=== PATIENT | female | born 1970 ===

== ENCOUNTER 2016-12-05 19:33 | Observation (INO) | payer MEDICAID, OTHER ==
[2016-12-05 20:39] LABS: PH,URINE 6.5 (4.7-8.0); URINE BILIRUBIN NEGATIVE (NEGATIVE); URINE BLOOD TRACE-LYSED (NEGATIVE); URINE GLUCOSE (UA) NEGATIVE (NEGATIVE); URINE KETONE NEGATIVE (NEGATIVE); URINE LEUKOCYTE ESTERASE NEGATIVE Leu/uL (NEGATIVE); URINE PROTEIN NEGATIVE mg/dL (<30 mg/dL); URINE UROBILINOGEN 0.2 E.U./dL (<1 E.U./dL)
[2016-12-05 20:42] LABS: URINE APPEARANCE CLEAR (CLEAR); URINE COLOR LIGHT YELLOW (YELLOW)
[2016-12-05 20:46] LABS: BASO # 0.02 K/mm3 (0.0-2.0); BASO % 0.2 % (0.0-3.0); EOS # 0.1 (0.0-0.7); EOS % 1.2 % (1.5-5.0); GRAN # 7.75 (1.4-6.5); GRAN % 70.5 % (50.0-68.0); HEMATOCRIT 37.1 % (36.0-48.0); LYMPH # 2.4 (1.2-3.4); LYMPH % 21.8 % (22.0-35.0); MEAN CORPUSCULAR HEMOGLOBIN 30.5 pg (25.0-35.0); MEAN CORPUSCULAR HGB CONC 34.2 g/dl (31.0-37.0); MEAN PLATELET VOLUME 9.4 fl (7.0-11.0); MONO # 0.7 (0.1-0.6); MONO % 6.3 % (1.0-6.0); RED CELL DISTRIBUTION WIDTH 13.1 % (11.5-14.5)
[2016-12-05 20:59] LABS: ALB/GLOB RATIO 1.3 (1.1-1.8); ALKALINE PHOSPHATASE 67 U/L (38-133); ALT/SGPT 24 U/L (7-56); AST/SGOT 20 U/L (15-39); BILIRUBIN,TOTAL 0.6 mg/dL (0.2-1.3); BLOOD UREA NITROGEN 9 mg/dL (7-21); CALCIUM 9.1 mg/dL (8.4-10.5); CARBON DIOXIDE 26 mmol/L (21-33); CHLORIDE 103 mmol/L (95-110); GFR AFRICAN-AMERICAN > 60; GLUCOSE,RANDOM 85 mg/dL (70-110); SODIUM 140 mmol/L (132-148); TOTAL PROTEIN 7.5 g/dL (5.8-8.3)
[2016-12-05 21:03] LABS: INR 0.99 (0.93-1.08); PARTIAL THROMBOPLASTIN TIME 27.8 Seconds (23.7-30.8)
[2016-12-05 21:08] LABS: D DIMER 1.03 mg/L FEU (0-0.50)
[2016-12-05 21:12] LABS: URINE BACTERIA MOD (NEG); URINE WBC 0 - 2 /hpf (0-6)
[2016-12-05 21:14] LABS: TROPONIN I < 0.01 ng/mL
--- NOTE | 2016-12-05 21:17 | ED PDOC ---
Arrival/HPI - General Chief Complaint: Shortness Of Breath Time Seen by Provider: 12/05/16 19:38 Historian: Patient - History of Present Illness Narrative History of Present Illness (Text): 12/05/16 20:15 Shari Jacobs is a 45 year old female whose past medical history includes CHF, hypertension, and mitral valve replacement, presents to the Emergency department complaining of mid-sternal chest pain for the past three days. Patient reports the pain radiates towards her neck and becomes worse with inspiration, which she associates with shortness of breath and nausea. Patient also has a mild headache. Patient denies fever, chills cough, vomiting, diarrhea , diaphoresis, jaw pain, back pain, lower extremity pain/swelling, or other complaints. Time/Duration: < week (3 days) Symptom Onset: Sudden Symptom Course: Unchanged Modifying Factors (Text): pain is worse with inspiration. shortness of breath with inspiration. Associated Symptoms (Text): 12/05/16 20:15 neck pain, shortness of breath with inspiration, nausea, and mild headache. Past Medical History - Provider Review Nursing Documentation Reviewed: Yes - Infectious Disease Hx of Infectious Diseases: None - Tetanus Immunization Tetanus Immunization: Unknown - Cardiac Hx Cardiac Disorders: Yes Hx Congestive Heart Failure: Yes Hx Hypertension: Yes Hx Mitral Valve Prolapse: Yes (had surgery) - Pulmonary Hx Respiratory Disorders: No - Neurological Hx Neurological Disorder: No - HEENT Hx HEENT Disorder: No - Renal Hx Renal Disorder: No - Endocrine/Metabolic Hx Endocrine Disorders: No - Hematological/Oncological Hx Blood Disorders: No Hx Blood Transfusion Reaction: No Hx Bruising: No - Integumentary Hx Dermatological Disorder: No - Musculoskeletal/Rheumatological Hx Musculoskeletal Disorders: No Hx Falls: No - Gastrointestinal Hx Gastrointestinal Disorders: No - Genitourinary/Gynecological Hx Genitourinary Disorders: No - Psychiatric Hx Psychophysiologic Disorder: No Hx Substance Use: No - Surgical History Hx Open Heart Surgery: Yes (heart valve replacement) Hx Valve Replacement: Yes (2009) - Anesthesia Hx Anesthesia: Yes Hx Anesthesia Reactions: No Hx Malignant Hyperthermia: No - Suicidal Assessment Feels Threatened In Home Enviroment: No Family/Social History - Physician Review Nursing Documentation Reviewed: Yes Family/Social History: Unknown Family HX Smoking Status: Never Smoked Hx Alcohol Use: No Hx Substance Use: No Hx Substance Use Treatment: No Allergies/Home Meds Allergies/Adverse Reactions: Allergies No Known Allergies Allergy (Verified 12/05/16 19:37) Home Medications: Home Meds Medication Instructions Recorded Confirmed Atenolol [Tenormin] 50 mg PO BID 12/05/16 12/05/16 Furosemide [Lasix] 40 mg PO DAILY 12/05/16 12/05/16 Review of Systems - Review of Systems Constitutional: absent: Fevers Respiratory: SOB (with inspiration). absent: Cough Cardiovascular: Chest Pain (mid-sternal) Gastrointestinal: Nausea. absent: Abdominal Pain, Diarrhea, Vomiting Genitourinary Female: absent: Dysuria Musculoskeletal: Neck Pain (chest pain radiates to neck) Neurological: Headache. absent: Dizziness, Focal Weakness Physical Exam Vital Signs Reviewed: Yes Vital Signs Temp Pulse Resp BP Pulse Ox 12/05/16 22:30 883 H 16 158/96 H 100 12/05/16 19:47 98.2 F 85 20 157/95 H 100 Temperature: Afebrile Blood Pressure: Hypertensive Pulse: Regular Respiratory Rate: Normal Appearance: Positive for: Well-Appearing, Non-Toxic, Comfortable Pain Distress: None Mental Status: Positive for: Alert and Oriented X 3 - Systems Exam Head: Present: Atraumatic, Normocephalic Pupils: Present: PERRL Conjunctiva: Present: Normal Mouth: Present: Moist Mucous Membranes Pharnyx: Present: Normal. No: ERYTHEMA Neck: Present: Normal Range of Motion Respiratory/Chest: Present: Clear to Auscultation, Good Air Exchange, Other ( sternotomy scar). No: Respiratory Distress, Accessory Muscle Use Cardiovascular: Present: Regular Rate and Rhythm, Normal S1, S2. No: Murmurs Abdomen: Present: Normal Bowel Sounds. No: Tenderness, Distention, Peritoneal Signs Back: Present: Normal Inspection Upper Extremity: Present: Normal Inspection. No: Cyanosis, Edema Lower Extremity: Present: Normal Inspection. No: Edema Neurological: Present: GCS=15, CN II-XII Intact, Speech Normal Skin: Present: Warm, Dry, Normal Color. No: Rashes Psychiatric: Present: Alert, Oriented x 3, Normal Insight, Normal Concentration Medical Decision Making ED Course and Treatment: 12/05/16 20:15 Impression: 45 year old female with midsternal chest pain and shortness of breath. Differential: ACS vs PE vs pneumonia vs anxiety vs GERD Plan: -- EKG -- Chest X-ray -- CT Chest -- Labs -- Urinalysis -- Pepcid and Zofran -- Reassess and disposition Progress Notes: EKG: Ordered, reviewed, and independently interpreted the EKG. Rate : 89 BPM Rhythm : NSR Interpretation : first degree AV block. ND is 261. Other intervals are normal. Normal axis. No ST/T changes. No changes compared to previous EKG. Comparison : 12/03/2016 12/05/16 20:15 Patient states she is going for repeat of valve replacement in two days at [facility]. 12/05/16 23:53 CT Angiography Chest With Intravenous Contrast FINDINGS: Pulmonary arteries: No pulmonary embolism. Aorta: No thoracic aortic aneurysm. Lungs: No mass. No consolidation. Patchy groundglass opacification is identified with a mosaic perfusion pattern within the bilateral lung bases. Pleural spaces: A right-sided pleural effusion is identified. The right lateral chest wall within the right upper lobe arch there is a loculated effusions, the largest at the base of the right upper lobe measuring 16 x 24 mm. No pneumothorax. Heart: The heart is enlarged, without significant pericardial effusion. Prosthetic mitral and tricuspid valves are noted. No evidence of right heart dysfunction. Bones: No acute fracture. Sternal wires are present. Lymph nodes: No pathologically enlarged lymph nodes. IMPRESSION: No pulmonary embolism. Right-sided pleural effusion with small loculated effusions along the right lateral chest wall, possibly the source of patient's pain, for which clinical correlation is needed. 12/06/16 00:14 Patient with noted history. Labs with elevated d-dimer and unchanged EKG. CTA showing no PE but pleural effusion. Patient is now c/o R lateral rib pain, which may be related. Toradol ordered. Case discussed with Dr. Sanchez for placement on the hospitalist service on observation on tele. - Lab Interpretations Lab Results: 12/05/16 20:34 12/05/16 20:34 Lab Results 12/05/16 20:34: Sodium 140, Potassium 4.0, Chloride 103, Carbon Dioxide 26, Anion Gap 15, BUN 9, Creatinine 0.5, Est GFR ( Amer) > 60, Est GFR (Non- Af Amer) > 60, Random Glucose 85, Calcium 9.1, Total Bilirubin 0.6, AST 20, ALT 24, Alkaline Phosphatase 67, Lactate Dehydrogenase 464, Total Creatine Kinase 38 , Troponin I < 0.01, NT-Pro-B Natriuret Pep 473 H, Total Protein 7.5, Albumin 4.2, Globulin 3.3, Albumin/Globulin Ratio 1.3 12/05/16 20:34: PT 10.7, INR 0.99, APTT 27.8, D-Dimer, Quantitative 1.03 H 12/05/16 20:34: WBC 11.0 D, RBC 4.17, Hgb 12.7, Hct 37.1, MCV 89.0, MCH 30.5, MCHC 34.2, RDW 13.1, Plt Count 336, MPV 9.4, Gran % 70.5 H, Lymph % (Auto) 21.8 L, [place] % (Auto) 6.3 H, Eos % (Auto) 1.2 L, Baso % (Auto) 0.2, Gran # 7.75 H, Lymph # 2.4, [place] # 0.7 H, Eos # 0.1, Baso # 0.02 12/05/16 20:20: Urine Color Light yellow, Urine Appearance Clear, Urine pH 6.5, Ur Specific [place] <= 1.005, Urine Protein Negative, Urine Glucose (UA) Negative, Urine Ketones Negative, Urine Blood Trace-lysed H, Urine Nitrate Negative, Urine Bilirubin Negative, Urine Urobilinogen 0.2, Ur Leukocyte Esterase Negative, Urine RBC 1 - 3, Urine WBC 0 - 2, Ur Epithelial Cells 4 - 5, Urine Bacteria Mod I have reviewed the lab results: Yes - RAD Interpretation Radiology Orders: 12/05/16 19:57 CHEST PORTABLE [RAD] Stat 12/05/16 21:09 ANGIO CHEST PE PROTOCOL [CT] Stat - EKG Interpretation Interpreted by ED Physician: Yes Type: 12 lead EKG - Medication Orders Current Medication Orders: Discontinued Medications Famotidine (Pepcid) 20 mg IVP STAT STA Stop: 12/05/16 19:58 Last Admin: 12/05/16 20:39 Dose: 20 mg Iohexol (Omnipaque 350 100 Ml) Confirm Administered Dose 350 mg .ROUTE .STK-MED ONE Stop: 12/05/16 21:21 Ketorolac Tromethamine (Toradol) 30 mg IVP STAT STA Stop: 12/05/16 23:48 Last Admin: 12/05/16 23:51 Dose: 30 mg Ondansetron HCl (Zofran Inj) 4 mg IVP STAT STA Stop: 12/05/16 19:58 Last Admin: 12/05/16 20:39 Dose: 4 mg - Scribe Statement The provider has reviewed the documentation as recorded by the Scribe 12/05/2016 Chana Yokasta Provider Scribe Attestation: All medical record entries made by the Scribe were at my direction and personally dictated by me. I have reviewed the chart and agree that the record accurately reflects my personal performance of the history, physical exam, medical decision making, and the department course for this patient. I have also personally directed, reviewed, and agree with the discharge instructions and disposition. Disposition/Present on Arrival - Present on Arrival Any Indicators Present on Arrival: No History of DVT/PE: No History of Uncontrolled Diabetes: No Urinary Catheter: No History of Decub. Ulcer: No History Surgical Site Infection Following: None - Disposition Have Diagnosis and Disposition been Completed?: Yes Diagnosis: Chest pain, H/O mitral valve replacement, Pleural effusion Disposition: HOSPITALIZED Disposition Time: 23:50 Patient Plan: Observation, Telemetry Condition: FAIR
[2016-12-05] MEDS ORDERED: Iohexol 350 MG/100 ML VIAL ONE (21:20)
--- NOTE | 2016-12-05 23:53 | CT ---
EXAM: CT Angiography Chest With Intravenous Contrast CLINICAL HISTORY: 45 years old, female; Pain; Chest wall pain; Prior surgery; Surgery date: 6+ months; Surgery type: Heart; Additional info: Pleuritic chest pain TECHNIQUE: Axial computed tomographic angiography images of the chest with intravenous contrast using pulmonary embolism protocol. All CT scans at this facility use one or more dose reduction techniques, viz.: automated exposure control; ma/kV adjustment per patient size (including targeted exams where dose is matched to indication; i.e. head); or iterative reconstruction technique. MIP reconstructed images were created and reviewed. Coronal and sagittal reformatted images were created and reviewed. CONTRAST: 100 mL of OMNI administered intravenously. COMPARISON: No relevant prior studies available. FINDINGS: Pulmonary arteries: No pulmonary embolism. Aorta: No thoracic aortic aneurysm. Lungs: No mass. No consolidation. Patchy groundglass opacification is identified with a mosaic perfusion pattern within the bilateral lung bases. Pleural spaces: A right-sided pleural effusion is identified. The right lateral chest wall within the right upper lobe arch there is a loculated effusions, the largest at the base of the right upper lobe measuring 16 x 24 mm. No pneumothorax. Heart: The heart is enlarged, without significant pericardial effusion. Prosthetic mitral and tricuspid valves are noted. No evidence of right heart dysfunction. Bones: No acute fracture. Sternal wires are present. Lymph nodes: No pathologically enlarged lymph nodes. IMPRESSION: No pulmonary embolism. Right-sided pleural effusion with small loculated effusions along the right lateral chest wall, possibly the source of patient's pain, for which clinical correlation is needed.
--- NOTE | 2016-12-06 01:00 | CP.PCM.HP ---
<Keyon Farrell - Last Filed: 12/06/16 02:05> History of Present Illness - History of Present Illness History of Present Illness: 46 year old female with a past medical history significant for hypertension, mitral & tricuspid valve replacement (etiology unknown to me at this time), open heart surgery, who presents with 1 month of cough, increased dyspnea with activity, orthopnea requiring 3 pillows to sleep at night, a productive cough with yellow/thick sputum and 1 week of subjective fever and headache. She states that she is also having pain on the along the right subcostal margin that is constant, and worsened with deep inspriation. She denies retrosternal, pressure-type chest pain at the time of my examination. She does not c/o visual disturbances, unilateral weakness, numbness, or new skin /nail lesions. She denies having any recent sick contact, or significant travel history, or TB exposure. PMH: hypertension, Mitral Valve replacement in 2008 and 2009, with last on record ECHO date as 12/04/2014 PSH: Open heart surgery for mitral valve replacement Medications: reviewed Allergies: Oxycodone Family History: Patient had difficulty recalling, or understanding this requested information at the time of my examination. Possible language barrier. Social History: Language barrier, possibly. Present on Admission - Present on Admission Any Indicators Present on Admission: No Review of Systems - Constitutional Constitutional: absent: Night Sweats, Weight Loss, Weakness - EENT Eyes: absent: Dry Eye, Exophthalmos, Pain Ears: absent: Decreased Hearing, Ear Discharge, Disequilibrium - Cardiovascular Cardiovascular: Dyspnea, Orthopnea. absent: Diaphoresis, Irregular Heart Rhythm , Leg Edema - Respiratory Respiratory: Cough, Change in Mucous Color, Pain with Coughing. absent: Hemoptysis, Dyspnea on Exertion - Gastrointestinal Gastrointestinal: absent: Belching, Bloating, Coffee Ground Emesis, Dysphagia - Genitourinary Genitourinary: absent: Urinary Incontinence, Urinary Hesitance, Urinary Urgency - Musculoskeletal Musculoskeletal: Neck Pain. absent: Abnormal Gait, Limited Range of Motion, Numbness - Integumentary Integumentary: absent: Skin Ulcer, Sores, Swelling, Jaundice - Neurological Neurological: Headaches. absent: Dizziness, Sensory Deficit, Tremor, Weakness - Psychiatric Psychiatric: absent: Behavioral Changes, Confusion, Depression - Endocrine Endocrine: absent: Change in Body Appearance, Cold Intolorance, Heat Intolorance - Hematologic/Lymphatic Hematologic: absent: Easy Bleeding, Easy Bruising Past Patient History - Infectious Disease Hx of Infectious Diseases: None - Tetanus Immunizations Tetanus Immunization: Unknown - Past Medical History & Family History Past Medical History?: Yes - Past Social History Smoking Status: Never Smoked - CARDIAC Hx Cardiac Disorders: Yes Hx Congestive Heart Failure: Yes Hx Hypertension: Yes Hx Mitral Valve Prolapse: Yes (had surgery) - PULMONARY Hx Respiratory Disorders: No - NEUROLOGICAL Hx Neurological Disorder: No - HEENT Hx HEENT Problems: No - RENAL Hx Chronic Kidney Disease: No - ENDOCRINE/METABOLIC Hx Endocrine Disorders: No - HEMATOLOGICAL/ONCOLOGICAL Hx Blood Disorders: No Hx Blood Transfusion Reaction: No Hx Bruising: No - INTEGUMENTARY Hx Dermatological Problems: No - MUSCULOSKELETAL/RHEUMATOLOGICAL Hx Musculoskeletal Disorders: No Hx Falls: No - GASTROINTESTINAL Hx Gastrointestinal Disorders: No - GENITOURINARY/GYNECOLOGICAL Hx Genitourinary Disorders: No - PSYCHIATRIC Hx Psychophysiologic Disorder: No Hx Substance Use: No - SURGICAL HISTORY Hx Open Heart Surgery: Yes (heart valve replacement) Hx Valve Replacement: Yes (2009) - ANESTHESIA Hx Anesthesia: Yes Hx Anesthesia Reactions: No Hx Malignant Hyperthermia: No Meds Allergies/Adverse Reactions: Allergies Allergy/AdvReac Type Severity Reaction Status Date / Time No Known Allergies Allergy Verified 12/05/16 19:37 Physical Exam - Constitutional Appears: Non-toxic, No Acute Distress - Head Exam Head Exam: ATRAUMATIC, NORMOCEPHALIC - Eye Exam Eye Exam: EOMI, Normal appearance, PERRL - ENT Exam ENT Exam: Mucous Membranes Moist, Normal Oropharynx - Neck Exam Neck exam: Positive for: Normal Inspection. Negative for: Lymphadenopathy, Thyromegaly - Respiratory Exam Respiratory Exam: Chest Wall Tenderness (right costal margin), Decreased Breath Sounds (right). absent: Accessory Muscle Use Additional comments: Pain to palpation on - Cardiovascular Exam Cardiovascular Exam: Tachycardia Additional comments: diastolic murmur heard at apex - GI/Abdominal Exam GI & Abdominal Exam: Normal Bowel Sounds, Soft. absent: Distended, Guarding - Extremities Exam Extremities exam: Positive for: normal capillary refill, normal inspection, pedal pulses present. Negative for: calf tenderness, pedal edema - Back Exam Back exam: absent: CVA tenderness (L), CVA tenderness (R) - Neurological Exam Neurological exam: Alert, CN II-XII Intact, Oriented x3 - Psychiatric Exam Psychiatric exam: Normal Affect, Normal Mood - Skin Skin Exam: Dry, Erythema, Intact, Normal Color, Warm Results - Vital Signs Recent Vital Signs: Last Vital Signs Temp 98.2 F 12/05/16 19:47 Pulse 883 H 12/05/16 22:30 Resp 16 12/05/16 22:30 BP 158/96 H 12/05/16 22:30 Pulse Ox 100 12/05/16 22:30 - Labs Result Diagrams: 12/05/16 20:34 12/05/16 20:34 - EKG Data EKG Interpreted by: Myself Rate: Normal Assessment & Plan - Assessment and Plan (Free Text) Assessment: 46 year old female with a past medical history significant for hypertension, Mitral valve insufficiency, who presents to the ED with 1 month of increasing dyspnea, orthopnea, productive cough, pleuritic chest pain with intermittent subjective fevers. Plan: 1) Dyspnea secondary to pulmonary edema in the setting of insidious worsening of mitral valve stenosis/insufficiency - Cardiology consulted - Consider Echocardiogram before patient is sent for mitral valve surgery/ repair at [facility] - CXR has no official read; however to my interpretation there is pulmonary edema and left atrial enlargement, radiographically 2) Elevated D-Dimer: - CT PE protocol showed no PE, but did show findings consistent with a right sided pleural effusion with "small loculated effusion along the right lateral chest. To my interpretation, I believe it is hard to discern if in fact there is a small loculated effusion along the right lateral chest, or if this just a pulmonary pseudotumor, commonly arising with pleural effusions, especially on the right side. 3) CHF - Currently will wait on recommendations from patient's long standing cardiology team, Dr. Addison/ Dorothy. 4) Chest pain R/O ischemia - EKG no ST-T wave changes indicative of [place] - Troponin I (-) x 1, will continue to follow 5) DVT/GI prophylaxis: SCD/Famotine 20 mg PO daily - Date & Time Date: 12/06/16 Time: 02:25 <Pamela Sanchez - Last Filed: 12/06/16 02:54> Results - Vital Signs Recent Vital Signs: Last Vital Signs Temp 98.2 F 12/05/16 19:47 Pulse 86 12/06/16 01:38 Resp 18 12/06/16 01:38 BP 147/88 12/06/16 01:38 Pulse Ox 99 12/06/16 01:38 - Labs Result Diagrams: 12/05/16 20:34 12/05/16 20:34 Attending/Attestation - Attestation I have personally seen and examined this patient.: Yes I have fully participated in the care of the patient.: Yes I have reviewed all pertinent clinical information: Yes Notes (Text): 12/06/16 02:52 Patient was seen when she was in bed # 5 in the ER . Agree with history, physical examination, assessment and plan. Following impressions should be inserted. Dyspnea. Midsternal Chest pain. Pleuritic chest pain. Cough. MVR. Right pleural effusion. Elevated D-Dimer. CHF. HTN. S/P cardiac cath. Hx bronchitis. Hx A [place].
[2016-12-06 03:16] VITALS: RESP 20; BMI 29.0
[2016-12-06 06:51] LABS: BASO # 0.01 K/mm3 (0.0-2.0); BASO % 0.1 % (0.0-3.0); EOS # 0.1 (0.0-0.7); EOS % 1.5 % (1.5-5.0); GRAN # 5.54 (1.4-6.5); GRAN % 64.7 % (50.0-68.0); HEMATOCRIT 32.9 % (36.0-48.0); LYMPH # 2.2 (1.2-3.4); LYMPH % 26.1 % (22.0-35.0); MEAN CELL VOLUME 88.4 fl (80.0-105.0); MEAN CORPUSCULAR HEMOGLOBIN 29.3 pg (25.0-35.0); MEAN CORPUSCULAR HGB CONC 33.1 g/dl (31.0-37.0); MEAN PLATELET VOLUME 9.1 fl (7.0-11.0); MONO # 0.7 (0.1-0.6); MONO % 7.6 % (1.0-6.0); RED CELL DISTRIBUTION WIDTH 13.4 % (11.5-14.5); WHITE BLOOD COUNT 8.6 10^3/ul (4.5-11.0)
[2016-12-06 07:14] VITALS: O2SAT 100
[2016-12-06 08:23] LABS: BLOOD UREA NITROGEN 7 mg/dL (7-21); CALCIUM 8.5 mg/dL (8.4-10.5); CARBON DIOXIDE 24 mmol/L (21-33); CHLORIDE 107 mmol/L (98-107); GFR AFRICAN-AMERICAN > 60; GLUCOSE,RANDOM 85 mg/dL (70-110); POTASSIUM 3.7 mmol/L (3.6-5.0); SODIUM 139 mmol/L (132-148)
--- NOTE | 2016-12-06 08:33 | RAD ---
HISTORY: cp COMPARISON: 02/28/2014 at 2:45 p.m. FINDINGS: LUNGS: Interval patchy opacity right lung base suggested. PLEURA: Right lateral mid lung zone mild pleural opacity consistent with pleural-based pathology here. Faint calcifications probably granulomatous changes are also noted. No pneumothorax apparent. CARDIOVASCULAR: Intact sternal wires 2 heart prosthesis noted OSSEOUS STRUCTURES: No significant abnormalities. VISUALIZED UPPER ABDOMEN: Normal. OTHER FINDINGS: None. IMPRESSION: Interval right lung base and right mid lung zone pleural-parenchymal opacity/ pathology. Acute infiltrates and/or atelectasis with the pleural reaction and/or small pleural loculations possible. Intact sternal wires with 2 cardiac prosthesis -similar-appearing
[2016-12-06] MEDS ORDERED: Potassium Chloride 20 mEq ER Tab PO ONE (09:10)
[2016-12-06] MEDS ORDERED: Oxycodone/Acetaminophen 2.5/325 mg Tab PO STA (11:25)
[2016-12-06 12:03] VITALS: BP 155/91; PULSE 56; TEMP 98.1
--- NOTE | 2016-12-06 13:40 | CT ---
PROCEDURE: CT HEAD WITHOUT CONTRAST. HISTORY: headache pending discharge COMPARISON: None available. TECHNIQUE: Axial computed tomography images were obtained through the head/brain without intravenous contrast. Radiation dose: Total exam DLP = 689 mGy-cm. This CT exam was performed using one or more of the following dose reduction techniques: Automated exposure control, adjustment of the mA and/or kV according to patient size, and/or use of iterative reconstruction technique. FINDINGS: HEMORRHAGE: No intracranial hemorrhage. BRAIN: No mass effect or edema. Chronic microvascular changes are seen. 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 No hydrocephalus. CALVARIUM: Unremarkable. PARANASAL SINUSES: Unremarkable as visualized. No significant inflammatory changes. MASTOID AIR CELLS: Unremarkable as visualized. No inflammatory changes. OTHER FINDINGS: None. IMPRESSION: No acute findings
--- NOTE | 2016-12-06 16:03 | RAD ---
HISTORY: F/U pneumonia and compare COMPARISON: No prior. TECHNIQUE: Chest PA and lateral FINDINGS: LUNGS: There is eventration of the right hemidiaphragm anteriorly best seen on the lateral film. The diaphragmatic border is partially obscured by an infiltrate in this location. The finding is unchanged. The remaining lung [place] are clear PLEURA: No significant pleural effusion identified. No pneumothorax apparent. CARDIOVASCULAR: Mild cardiomegaly OSSEOUS STRUCTURES: Sternal wires VISUALIZED UPPER ABDOMEN: Normal. OTHER FINDINGS: None. IMPRESSION: There is eventration of the right hemidiaphragm anteriorly best seen on the lateral film. The diaphragmatic border is partially obscured by an infiltrate in this location. The finding is unchanged. The remaining lung [place] are clear
--- NOTE | 2016-12-06 19:31 | CARD ---
APPROVED REPORT EKG Measurement Heart [id number] <Conclusion> Sinus rhythm with 1st degree AV block Possible Left atrial enlargement Borderline ECG
--- NOTE | 2016-12-07 08:03 | CON ---
DATE OF SERVICE: 12/06/2016 CONSULTING PHYSICIAN: Dr. Mena Addison REASON FOR CONSULTATION: Chest pain, history of open heart surgery, history of MV replacement. HISTORY OF PRESENT ILLNESS: This is a 45-year-old female with past medical history significant for severe mitral regurgitation, is status post open heart twice, mitral valve repair in 2008 and 2009, normal coronaries, last echo dated 11/24/2014, admitted with chest pain and shortness of breath. PAST MEDICAL HISTORY: Significant for nonobstructive coronary artery disease, status post cardiac catheterization twice in 2008 and 2009 before open heart surgery. He is status post MV repair twice, last echo dated 12/03/2014 sowed LV function, ejection fraction 40% to 45%, moderate mitral regurgitation, mitral valve is bioprosthetic, no vegetation noted, read by Dr. Espinosa at [facility]. SOCIAL HISTORY: Denies smoking. Denies any history of alcohol abuse. FAMILY HISTORY: Noncontributory. CURRENT MEDICATIONS: The patient is taking furosemide and atenolol 50 mg. ALLERGIES: NO KNOWN DRUG ALLERGIES. REVIEW OF SYSTEMS: As per HPI. PHYSICAL EXAMINATION: VITAL SIGNS: Temperature afebrile, heart rate 79, blood pressure 139/84. HEENT: PERRLA. Extraocular muscles intact. NECK: Supple. No carotid bruits. No thyromegaly. CHEST: Clear to auscultation. HEART: S1 and S2 regular. ABDOMEN: Soft. EXTREMITIES: Clubbing and cyanosis negative. LABORATORY DATA: EKG shows normal sinus rhythm with rate of 68. No acute ST-T changes noted. Blood workup as follows: WBC 8.6, hemoglobin 10.9, hematocrit 32.9, platelets count 295. Chemistry showed sodium 139, potassium 3.7, chloride 107, carbon dioxide 24, anion gap of 12, BUN 7, creatinine 0.6, troponin 0.01 x2 negative. Chest x-ray reviewed, patchy opacities noted at right lung base reported, cannot open the films, probably system is down. CAT scan of the chest, no pulmonary embolism, right-sided pleural effusion, a small loculated effusion along with right lateral chest wall possibly the source of the patient's pain. The patient complained of right-sided lower pain. IMPRESSION AND PLAN: A 45-year-old female with past medical history significant for mitral regurgitation, status post open heart surgery twice in 2008 and 2009, history of cardiac catheterization, normal coronaries, status post mitral valve replacement, admitted with chest pain, right sided. Chest x-ray shows possible pleural effusion. CAT scan shows pleural effusion that is probably causing the chest pain. No evidence of acute myocardial infarction, no evidence of acute coronary syndrome. The patient has appointment tomorrow to see Dr. Gavin. The patient has been recently worked up at [facility] and referred to Dr. Gavin. If the patient remains stable, can be discharged to see Dr. Gavin, so she does not miss an appointment. Follow up with primary medical doctor is recommended. We will repeat a chest x-ray this afternoon, give gentle diuretics, 1 dose of intravenous Lasix, supplement potassium, and we will get a chest x-ray at [address]. [address] Jensen for providing an opportunity in taking care of the patient. Mena Addison MD cc: Dr. Jensen
--- NOTE | 2016-12-07 20:43 | CP.PCM.DIS ---
Provider - Provider Date of Admission: 12/05/16 23:56 Attending physician: Jeffrey Jensen MD Primary care physician: Santhosh Gonzalez APN Consults: Cardio-Azael Time Spent in preparation of Discharge (in minutes): 41 Hospital Course - Lab Results Lab Results: Micro Results 12/06/16 01:30 Blood-Venous Blood Culture - Preliminary NO GROWTH AFTER 24 HOURS 12/06/16 00:25 Blood-Venous Blood Culture - Preliminary NO GROWTH AFTER 24 HOURS Most Recent Lab Values WBC 8.6 10^3/ul (4.5-11.0) D 12/06/16 06:15 RBC 3.72 10^6/uL (3.5-6.1) 12/06/16 06:15 Hgb 10.9 g/dL (12.0-16.0) L 12/06/16 06:15 Hct 32.9 % (36.0-48.0) L 12/06/16 06:15 MCV 88.4 fl (80.0-105.0) 12/06/16 06:15 MCH 29.3 pg (25.0-35.0) 12/06/16 06:15 MCHC 33.1 g/dl (31.0-37.0) 12/06/16 06:15 RDW 13.4 % (11.5-14.5) 12/06/16 06:15 Plt Count 295 10^3/uL (120.0-450.0) 12/06/16 06:15 MPV 9.1 fl (7.0-11.0) 12/06/16 06:15 Gran % 64.7 % (50.0-68.0) 12/06/16 06:15 Lymph % (Auto) 26.1 % (22.0-35.0) 12/06/16 06:15 [place] % (Auto) 7.6 % (1.0-6.0) H 12/06/16 06:15 Eos % (Auto) 1.5 % (1.5-5.0) 12/06/16 06:15 Baso % (Auto) 0.1 % (0.0-3.0) 12/06/16 06:15 Gran # 5.54 (1.4-6.5) 12/06/16 06:15 Lymph # 2.2 (1.2-3.4) 12/06/16 06:15 [place] # 0.7 (0.1-0.6) H 12/06/16 06:15 Eos # 0.1 (0.0-0.7) 12/06/16 06:15 Baso # 0.01 K/mm3 (0.0-2.0) 12/06/16 06:15 PT 10.7 Seconds (9.9-11.8) 12/05/16 20:34 INR 0.99 (0.93-1.08) 12/05/16 20:34 APTT 27.8 Seconds (23.7-30.8) 12/05/16 20:34 D-Dimer, Quantitative 1.03 mg/L FEU (0-0.50) H 12/05/16 20:34 Sodium 139 mmol/L (132-148) 12/06/16 06:56 Potassium 3.7 mmol/L (3.6-5.0) 12/06/16 06:56 Chloride 107 mmol/L (98-107) 12/06/16 06:56 Carbon Dioxide 24 mmol/L (21-33) 12/06/16 06:56 Anion Gap 12 (10-20) 12/06/16 06:56 BUN 7 mg/dL (7-21) 12/06/16 06:56 Creatinine 0.6 mg/dL (0.5-1.4) 12/06/16 06:56 Est GFR ( Amer) > 60 12/06/16 06:56 Est GFR (Non-Af Amer) > 60 12/06/16 06:56 Random Glucose 85 mg/dL (70-110) 12/06/16 06:56 Calcium 8.5 mg/dL (8.4-10.5) 12/06/16 06:56 Total Bilirubin 0.6 mg/dL (0.2-1.3) 12/05/16 20:34 AST 20 U/L (15-39) 12/05/16 20:34 ALT 24 U/L (7-56) 12/05/16 20:34 Alkaline Phosphatase 67 U/L (38-133) 12/05/16 20:34 Lactate Dehydrogenase 464 U/L (333-699) 12/05/16 20:34 Total Creatine Kinase 38 U/L (35-230) 12/05/16 20:34 Troponin I < 0.01 ng/mL 12/06/16 06:15 NT-Pro-B Natriuret Pep 473 pg/mL (0-450) H 12/05/16 20:34 Total Protein 7.5 g/dL (5.8-8.3) 12/05/16 20:34 Albumin 4.2 g/dL (3.0-4.8) 12/05/16 20:34 Globulin 3.3 gm/dL 12/05/16 20:34 Albumin/Globulin Ratio 1.3 (1.1-1.8) 12/05/16 20:34 Urine Color Light yellow (YELLOW) 12/05/16 20:20 Urine Appearance Clear (CLEAR) 12/05/16 20:20 Urine pH 6.5 (4.7-8.0) 12/05/16 20:20 Ur Specific [place] <= 1.005 (1.005-1.035) 12/05/16 20:20 Urine Protein Negative mg/dL (<30 mg/dL) 12/05/16 20:20 Urine Glucose (UA) Negative mg/dL (NEGATIVE) 12/05/16 20:20 Urine Ketones Negative mg/dL (NEGATIVE) 12/05/16 20:20 Urine Blood Trace-lysed (NEGATIVE) H 12/05/16 20:20 Urine Nitrate Negative (NEGATIVE) 12/05/16 20:20 Urine Bilirubin Negative (NEGATIVE) 12/05/16 20:20 Urine Urobilinogen 0.2 E.U./dL (<1 E.U./dL) 12/05/16 20:20 Ur Leukocyte Esterase Negative Karen/uL (NEGATIVE) 12/05/16 20:20 Urine RBC 1 - 3 /hpf (0-2) 12/05/16 20:20 Urine WBC 0 - 2 /hpf (0-6) 12/05/16 20:20 Ur Epithelial Cells 4 - 5 /hpf (0-5) 12/05/16 20:20 Urine Bacteria Mod (NEG) 12/05/16 20:20 - Hospital Course Hospital Course: 46 year old female with a past medical history significant for hypertension, rheumatic heart disease as a child, and mitral & tricuspid valve replacement presented with 1 month of cough, increased dyspnea with activity, orthopnea requiring 3 pillows to sleep at night, a productive cough with yellow/ thick sputum and 1 week of subjective fever and headache. Patient reported that she had a cardiothoracic surgery procedure to replace her mitral and tricuspid valve on 12/07. Cardiology was consulted. An EKG was ordered and showed patient to have no changes when compared to her previous EKG's. Three serial troponins were ordered and found to be negative. A d-dimer was found to be positive so a chest CT was ordered to rule out a PE and it showed no pulmonary embolism and right-sided pleural effusion with small loculated effusions along the right lateral chest wall. A chest x-ray showed similar findings. Cardiology suggested that patient be discharged home with follow up with Dr. Addison and to keep her regularly scheduled appointment for her procedure on 12/07 and to mention to this surgeon her findings of a pleural effusion. A head CT was ordered for the patients relentless headache and showed no acute findings. Patient remained HDS and was discharged on 12/06. - Date & Time of H&P Date of H&P: 12/06/16 Time of H&P: 00:59 Discharge Exam - Head Exam Head Exam: ATRAUMATIC, NORMOCEPHALIC - Eye Exam Eye Exam: EOMI, Normal appearance, PERRL Pupil Exam: NORMAL ACCOMODATION - ENT Exam ENT Exam: Mucous Membranes Moist, Normal Exam, Normal Oropharynx - Neck Exam Neck exam: Full Rom, Normal Inspection - Respiratory Exam Respiratory Exam: Clear to PA & Lateral, NORMAL BREATHING PATTERN, UNREMARKABLE. absent: Rales, Rhonchi, Wheezes - Cardiovascular Exam Cardiovascular Exam: REGULAR RHYTHM, RRR, +S1, +S2. absent: Tachycardia - GI/Abdominal Exam GI & Abdominal Exam: Normal Bowel Sounds, Unremarkable. absent: Distended, Firm , Guarding, Tenderness - Exam Exam: absent: Bladder Distension - Extremities Exam Extremities exam: normal capillary refill, normal inspection, pedal pulses present - Back Exam Back exam: absent: CVA tenderness (L), CVA tenderness (R), paraspinal tenderness , vertebral tenderness - Neurological Exam Neurological exam: Alert, CN II-XII Intact, Normal Gait, Oriented x3 - Psychiatric Exam Psychiatric exam: Normal Affect, Normal Mood - Skin Skin Exam: Dry, Intact, Normal Color, Warm Discharge Plan - Follow Up Plan Condition: FAIR Disposition: HOME/ ROUTINE Instructions: Chest Pain (ED), Chest Pain (DC), Chest Pain (GEN), Pleural Effusion (DC), Pleural Effusion (GEN) Additional Instructions: 1. Please follow up with your cardiothoracic surgeon at your scheduled appointment regarding your scheduled procedure tomorrow, 12/07. 2. Please take all medications as prescribed 3. If your symptoms should worsen or persist, please seek emergency medical attention Referrals: Santhosh Gonzalez APN [Primary Care Provider] -
== END 2016-12-06 13:59 | disposition home or self-care (01) ==
LOC: ED 19:33 → ERH 23:56 → 2RNO 12-06 03:31
PROVIDERS: ADMIT Internal Medicine; ATTEND Internal Medicine
DX: R07.9 Chest pain, unspecified (principal); I25.10 Atherosclerotic heart disease of native coronary artery without angina pectoris; I11.0 Hypertensive heart disease with heart failure; I50.9 Heart failure, unspecified; R06.00 Dyspnea, unspecified; I34.0 Nonrheumatic mitral (valve) insufficiency; R06.01 Orthopnea; R05 Cough; Z95.2 Presence of prosthetic heart valve
CPT/HCPCS: 70450; 71010; 71020; 71275; 80048; 80053; 81001; 82550; 83615; 83880; 84484; 85025; 85378; 85610; 85730; 87040; 93005; 96374; 96375; 99285; G0378; J1885; J1940; J2405; Q9967

== ENCOUNTER 2017-11-24 21:20 | Observation (INO) | payer MEDICAID ==
[2017-11-24 21:52] VITALS: BMI 31.8
--- NOTE | 2017-11-24 22:20 | ED PDOC ---
Arrival/HPI - General Chief Complaint: Shortness Of Breath Time Seen by Provider: 11/24/17 21:22 Historian: Patient - History of Present Illness Narrative History of Present Illness (Text): 11/24/17 22:19 A 46 year old female, whose past medical history includes 2 mitral valve replacements, presents to the emergency department complaining of a sore throat and left sided neck pain since 2 days ago. Patient reports dyspnea on exertion, chest discomfort pain exacerbated when laying down on her back, and numbness and pain in her left hand. Patient notes having similar symptoms with the 2nd mitral valve surgery last year. Patient reports her first mitral valve replacement occurred in 2009 with a cow valve and her 2nd mitral valve replacement occured last year iwht a pig valve. Patient denies any fever, chills , nausea, vomiting, diarrhea, urinary symptoms, back pain, headache, dizziness, or any other complaints. PMD: Dr. Dwight Yanes Technical Director: Dr. Bridger Means Time/Duration: Other (2 days ago) Symptom Course: Unchanged Activities at Onset: Light Context: Home Past Medical History - Provider Review Nursing Documentation Reviewed: Yes - Infectious Disease Hx of Infectious Diseases: None - Tetanus Immunization Tetanus Immunization: Unknown - Cardiac Hx Cardiac Disorders: Yes Hx Congestive Heart Failure: Yes Hx Hypertension: Yes Hx Mitral Valve Prolapse: Yes - Pulmonary Hx Respiratory Disorders: No - Neurological Hx Neurological Disorder: No - HEENT Hx HEENT Disorder: No - Renal Hx Renal Disorder: No - Endocrine/Metabolic Hx Endocrine Disorders: No - Hematological/Oncological Hx Blood Disorders: No Hx Blood Transfusion Reaction: No Hx Bruising: No - Integumentary Hx Dermatological Disorder: No - Musculoskeletal/Rheumatological Hx Falls: No - Gastrointestinal Hx Gastrointestinal Disorders: No - Genitourinary/Gynecological Hx Genitourinary Disorders: No - Psychiatric Hx Anxiety: Yes Hx Substance Use: No - Surgical History Hx Open Heart Surgery: Yes - Anesthesia Hx Anesthesia: Yes Hx Anesthesia Reactions: No Hx Malignant Hyperthermia: No - Suicidal Assessment Feels Threatened In Home Enviroment: No Family/Social History - Physician Review Nursing Documentation Reviewed: Yes Family/Social History: Unknown Family HX Smoking Status: Never Smoked Hx Alcohol Use: No Hx Substance Use: No Hx Substance Use Treatment: No Allergies/Home Meds Allergies/Adverse Reactions: Allergies No Known Allergies Allergy (Verified 11/24/17 21:50) Home Medications: Home Meds Medication Instructions Recorded Confirmed Furosemide [Lasix] 40 mg PO DAILY 12/05/16 11/24/17 Aspirin [[place] Aspirin] 81 mg PO DAILY 11/24/17 11/24/17 Metoprolol Tartrate [Lopressor] 50 mg PO BID 11/24/17 11/24/17 Review of Systems - Physician Review All systems were reviewed & negative as marked: Yes - Review of Systems Constitutional: absent: Fatigue, Weight Change, Fevers, Night Sweats ENT: Sore Throat. absent: Hearing Changes, Tinnitus, TMJ Pain, Voice Changes, Rhinorrhea, Epistaxis, Sinus Congestion Respiratory: SOB (Dyspnea on exertion). absent: Cough Cardiovascular: Chest Pain (chest discomfort; gets worse when laying on her back ). absent: Palpitations, Edema, Calf Pain, MORRISON, Orthopnea, Syncope Gastrointestinal: absent: Diarrhea, Nausea, Vomiting Musculoskeletal: Neck Pain (left sided neck pain ), Other (numbnees and pain in left hand ). absent: Arthralgias, Back Pain, Joint Swelling, Myalgias Neurological: absent: Headache, Dizziness Physical Exam Vital Signs Reviewed: Yes Vital Signs Temp Pulse Resp BP Pulse Ox 11/24/17 23:23 98.5 F 67 18 122/80 100 11/24/17 21:58 18 100 11/24/17 21:21 98.5 F 72 18 158/90 H 100 Temperature: Afebrile Blood Pressure: Hypertensive Pulse: Regular Respiratory Rate: Normal Appearance: Positive for: Well-Appearing, Non-Toxic, Comfortable Pain Distress: None Mental Status: Positive for: Alert and Oriented X 3 - Systems Exam Head: Present: Atraumatic, Normocephalic Pupils: Present: PERRL Extroacular Muscles: Present: EOMI Conjunctiva: Present: Normal Mouth: Present: Moist Mucous Membranes Neck: Present: Normal Range of Motion Respiratory/Chest: Present: Clear to Auscultation, Good Air Exchange. No: Respiratory Distress, Accessory Muscle Use Cardiovascular: Present: Regular Rate and Rhythm, Normal S1, S2, Other (corotid arteries no bruits). No: Murmurs Abdomen: No: Tenderness, Distention, Peritoneal Signs Back: Present: Normal Inspection Upper Extremity: Present: Normal Inspection. No: Cyanosis, Edema Lower Extremity: Present: Normal Inspection. No: Edema Neurological: Present: GCS=15, CN II-XII Intact, Speech Normal Skin: Present: Warm, Dry, Normal Color. No: Rashes Psychiatric: Present: Alert, Oriented x 3, Normal Insight, Normal Concentration Medical Decision Making ED Course and Treatment: 11/24/17 22:25 Impression: 46 year old female presenting to the Emergency department complaining of sore throat and left arm pain. Differential Diagnosis included but are not limited to: CHF vs. MS vs. valvular insufficiency Plan: -- Venous Blood Gas -- EKG -- CBC -- Coag -- Erythrocyte Sedimentation Rate -- Chest X-ray -- Labs -- IV Fluids -- Procalcitonin Serum -- Urinalysis -- Reassess and disposition Prior Visits: Notes and results from previous visits were reviewed. Progress Notes: 11/24/17 22:35 EKG reviewed by me, shows sinus rhythm with 1st degree AV block otherwise normal ECG. 11/25/17 00:35 All labs appeared normal. Chest X-ray reviewed by me, fails to demonstrate overt heart failure. Patient should have a consultation from cardiology and echo cardiogram. - Lab Interpretations Lab Results: 11/24/17 22:15 11/24/17 22:15 Lab Results 11/24/17 23:22: Urine Color Yellow, Urine Appearance Clear, Urine pH 6.0, Ur Specific [place] 1.025, Urine Protein Negative, Urine Glucose (UA) Negative, Urine Ketones Negative, Urine Blood Trace-lysed H, Urine Nitrate Negative, Urine Bilirubin Negative, Urine Urobilinogen 0.2, Ur Leukocyte Esterase Negative , Urine RBC 1 - 3, Urine WBC 0 - 2, Ur Epithelial Cells 3 - 4, Urine Bacteria Few 11/24/17 22:15: Sodium 141, Potassium 4.1, Chloride 102, Carbon Dioxide 27, Anion Gap 17, BUN 11, Creatinine 0.7, Est GFR ( Amer) > 60, Est GFR (Non- Af Amer) > 60, Random Glucose 96, Calcium 9.3, Phosphorus 3.8, Magnesium 2.2, Total Bilirubin 0.5, AST 22, ALT 23, Alkaline Phosphatase 77, NT-Pro-B Natriuret Pep 287, Total Protein 8.6 H, Albumin 4.5, Globulin 4.0, Albumin/ Globulin Ratio 1.1 11/24/17 22:15: pO2 30, ABG Carboxyhemoglobin 1.9 H, POC ABG HHb (Measured) 41.9 H, ABG Methemoglobin 0.5, VBG pH 7.32, VBG pCO2 54.0, VBG HCO3 27.8, VBG O2 Sat (Calc) 57.1, VBG Base Excess 0.6, VBG Hgb O2 Saturation 55.7 L, Hemoglobin 13.9 11/24/17 22:15: PT 12.9 H, INR 1.13 11/24/17 22:15: WBC 10.5 D, RBC 4.33, Hgb 13.5 D, Hct 38.8, MCV 89.6, MCH 31.2 , MCHC 34.8, RDW 12.9, Plt Count 359, MPV 9.7, Gran % 64.2, Lymph % (Auto) 27.5 , [place] % (Auto) 6.5 H, Eos % (Auto) 1.6, Baso % (Auto) 0.2, Gran # 6.74 H, Lymph # (Auto) 2.9, [place] # (Auto) 0.7 H, Eos # (Auto) 0.2, Baso # (Auto) 0.02, ESR Pending - RAD Interpretation Radiology Orders: 11/24/17 22:15 CHEST PORTABLE [RAD] Stat - Scribe Statement The provider has reviewed the documentation as recorded by the Valentin Francois All medical record entries made by the Tyroneibe were at my direction and personally dictated by me. I have reviewed the chart and agree that the record accurately reflects my personal performance of the history, physical exam, medical decision making, and the department course for this patient. I have also personally directed, reviewed, and agree with the discharge instructions and disposition. Disposition/Present on Arrival - Present on Arrival History of DVT/PE: No History of Uncontrolled Diabetes: No Urinary Catheter: No History of Decub. Ulcer: No History Surgical Site Infection Following: None - Disposition Forms: [employer] (Yi)
[2017-11-24 23:20] LABS: VENOUS BLOOD GAS BASE EXCESS 0.6 mmol/L (0.0-2.0); VENOUS BLOOD GAS PO2 30 mm/Hg (30-55); VENOUS BLOOD PH 7.32 (7.32-7.43)
[2017-11-24 23:21] LABS: BASO # 0.02 K/mm3 (0.0-2.0); BASO % 0.2 % (0.0-3.0); EOS # 0.2 (0.0-0.7); EOS % 1.6 % (1.5-5.0); GRAN # 6.74 (1.4-6.5); GRAN % 64.2 % (50.0-68.0); HEMOGLOBIN 13.5 g/dL (12.0-16.0); LYMPH # 2.9 (1.2-3.4); LYMPH % 27.5 % (22.0-35.0); MEAN CELL VOLUME 89.6 fl (80.0-105.0); MEAN CORPUSCULAR HEMOGLOBIN 31.2 pg (25.0-35.0); MEAN CORPUSCULAR HGB CONC 34.8 g/dl (31.0-37.0); MEAN PLATELET VOLUME 9.7 fl (7.0-11.0); MONO # 0.7 (0.1-0.6); MONO % 6.5 % (1.0-6.0); RBC 4.33 10^6/uL (3.5-6.1); RED CELL DISTRIBUTION WIDTH 12.9 % (11.5-14.5); WHITE BLOOD COUNT 10.5 10^3/ul (4.5-11.0)
[2017-11-24 23:31] LABS: ALB/GLOB RATIO 1.1 (1.1-1.8); ALBUMIN 4.5 g/dL (3.0-4.8); ALT/SGPT 23 U/L (7-56); AST/SGOT 22 U/L (14-36); BLOOD UREA NITROGEN 11 mg/dL (7-21); CALCIUM 9.3 mg/dL (8.4-10.5); GFR AFRICAN-AMERICAN > 60; GFR NON-AFRICAN AMERICAN > 60; INR 1.13; PROTHROMBIN TIME 12.9 SECONDS (9.4-12.5)
[2017-11-24 23:38] LABS: B-TYPE NATRIURETIC PEPTIDE 287 pg/mL (0-450)
[2017-11-24 23:39] LABS: URINE BILIRUBIN NEGATIVE (NEGATIVE); URINE BLOOD TRACE-LYSED (NEGATIVE); URINE GLUCOSE (UA) NEGATIVE (NEGATIVE); URINE LEUKOCYTE ESTERASE NEGATIVE Leu/uL (NEGATIVE); URINE PROTEIN NEGATIVE mg/dL (<30 mg/dL); URINE UROBILINOGEN 0.2 E.U./dL (<1 E.U./dL)
[2017-11-24 23:41] LABS: URINE APPEARANCE CLEAR (CLEAR); URINE COLOR YELLOW (YELLOW)
[2017-11-25 00:25] LABS: URINE BACTERIA FEW (NEG); URINE WBC 0 - 2 /hpf (0-6)
[2017-11-25 03:43] LABS: PARTIAL THROMBOPLASTIN TIME 26.8 Seconds (25.1-36.5)
[2017-11-25] MEDS ORDERED: Albuterol-Ipratrop 3 mg / 0.5 (3 ml) UD IH PRN (05:28)
--- NOTE | 2017-11-25 05:54 | CP.PCM.HP ---
<Nasir Scott - Last Filed: 11/25/17 07:16> History of Present Illness - History of Present Illness History of Present Illness: 46 y/o femle pt with PMH of HTN, Rheumatic heart disease s/p mitral valve surgeries x3 presents with SOB for more than 4 months on mild to moderate exertion, getting worse for the last one week. Patient also c/o bulging on her anterior neck, appears when coughing, straining during bowel movement, bending forward. She feels that she is chocking and as if there is foreign body inside her throat. Patient admits to occasional cough. Patient had rheumatic hear disease as a child Patient denies fever, chills, vomiting, diarrhea, diaphoresis , jaw pain, back pain, lower extremity pain/swelling, or other complaints. 12 points ROS is negative except as per HPI Past medical history: HTN, Rheumatic heart disease Past Surgical History:s/p mitral valve surgeries x3, fibroid resection, Cesarian section Family History: Brother at age 23 of valvular disease, HTN in family Meds: as per EMR Allergie: NKDA SH: denied smoking, drinking and drug use. Lives with family [employer]: Dr Bridger Means Present on Admission - Present on Admission Any Indicators Present on Admission: No Review of Systems - Constitutional Constitutional: Lethargy, Malaise, Weakness. absent: Chills, Fever, Headache, Night Sweats - EENT Eyes: absent: Diplopia, Discharge, Itchy Eyes, Loss of Peripheral Vision Ears: absent: Decreased Hearing, Ear Discharge Nose/Mouth/Throat: absent: Bleeding Gums, Dry Mouth - Cardiovascular Cardiovascular: Dyspnea on Exertion, Lightheadedness. absent: Leg Edema, Radiating Pain - Respiratory Respiratory: Cough, Dyspnea on Exertion. absent: Hemoptysis, Chest Congestion - Gastrointestinal Gastrointestinal: absent: Cramping, Diarrhea, Dyspepsia, Loose Stools - Genitourinary Genitourinary: absent: Change in Urinary Stream, Hematuria, Pyuria - Musculoskeletal Musculoskeletal: Muscle Weakness, Myalgias. absent: Arthralgias, Joint Swelling , Stiffness - Integumentary Integumentary: absent: Lesions, Rash, Sores - Neurological Neurological: absent: Burning Sensations, Focal Weakness, Radicular Pain - Psychiatric Psychiatric: Depression. absent: Confusion - Endocrine Endocrine: absent: Flushing, Polyphagia, Polyuria - Hematologic/Lymphatic Hematologic: absent: Easy Bleeding, Easy Bruising Past Patient History - Infectious Disease Hx of Infectious Diseases: None - Tetanus Immunizations Tetanus Immunization: Unknown - Past Medical History & Family History Past Medical History?: Yes - Past Social History Smoking Status: Never Smoked Alcohol: None Drugs: Denies Home Situation {Lives}: With Family - CARDIAC Hx Cardiac Disorders: Yes Hx Congestive Heart Failure: Yes Hx Hypertension: Yes Hx Mitral Valve Prolapse: Yes - PULMONARY Hx Respiratory Disorders: No - NEUROLOGICAL Hx Neurological Disorder: No - HEENT Hx HEENT Problems: No - RENAL Hx Chronic Kidney Disease: No - ENDOCRINE/METABOLIC Hx Endocrine Disorders: No - HEMATOLOGICAL/ONCOLOGICAL Hx Blood Disorders: No - INTEGUMENTARY Hx Dermatological Problems: No - MUSCULOSKELETAL/RHEUMATOLOGICAL Hx Falls: No - GASTROINTESTINAL Hx Gastrointestinal Disorders: No - GENITOURINARY/GYNECOLOGICAL Hx Genitourinary Disorders: No - PSYCHIATRIC Hx Anxiety: Yes - SURGICAL HISTORY Hx Open Heart Surgery: Yes - ANESTHESIA Hx Anesthesia: Yes Hx Anesthesia Reactions: No Hx Malignant Hyperthermia: No Meds Allergies/Adverse Reactions: Allergies Allergy/AdvReac Type Severity Reaction Status Date / Time No Known Allergies Allergy Verified 11/24/17 21:50 Physical Exam - Constitutional Appears: Well, No Acute Distress - Head Exam Head Exam: ATRAUMATIC, NORMAL INSPECTION, NORMOCEPHALIC - Eye Exam Eye Exam: EOMI, Normal appearance, PERRL Pupil Exam: NORMAL ACCOMODATION, PERRL - ENT Exam ENT Exam: Mucous Membranes Moist, Normal Exam - Neck Exam Neck exam: Positive for: Normal Inspection. Negative for: Lymphadenopathy, Thyromegaly - Respiratory Exam Respiratory Exam: Clear to Auscultation Bilateral, NORMAL BREATHING PATTERN - Cardiovascular Exam Cardiovascular Exam: REGULAR RHYTHM, +S1, +S2 - GI/Abdominal Exam GI & Abdominal Exam: Normal Bowel Sounds, Soft. absent: Tenderness - Extremities Exam Extremities exam: Positive for: normal inspection - Back Exam Back exam: NORMAL INSPECTION - Psychiatric Exam Psychiatric exam: Normal Affect, Normal Mood - Skin Skin Exam: Dry, Intact, Normal Color, Warm Results - Vital Signs Recent Vital Signs: Last Vital Signs Temp 98.1 F 11/25/17 02:13 Pulse 81 11/25/17 05:34 Resp 18 11/25/17 02:13 BP 154/89 H 11/25/17 02:13 Pulse Ox 100 11/25/17 02:00 - Labs Result Diagrams: 11/24/17 22:15 11/24/17 22:15 Labs: Laboratory Results - last 24 hr 11/25/17 11/25/17 03:00 03:00 APTT 26.8 D-Dimer, Quantitative 600 H Troponin I < 0.01 Assessment & Plan - Assessment and Plan (Free Text) Assessment: 46 y/o femle pt with PMH of HTN, Rheumatic heart disease s/p mitral valve surgeries x3 presents with MORRISON for more than 4 months and neck bulging during cough or bending forward. D-dimer 600 Plan: Shortness of breath h/o Rheumatic heart disease s/p multiple mitral valve replacement surgeries, tissue valves. CXR: no cardiomegaly EKG: sinus rhythm with 1st degree AV block Echo ordered BNP 287 Trop (-) x1 will trend CBC, CMP, Mg, Phos, procal, CRP PT/PTT D-dimer 600 CTA chest r/o PE O2 NC PRN Duoneb q4h and prn Blood Cx Urine Cx cardio consulted Dr Maloney Neck pain CT w/o contrast neck ordered TSH ordered B12 level ordered Flexerel 5mg BID HTN monitor BP continue home meds metoprolol, asa lipid panel HbA1c Vitamin D deficiency Vitamin D level ordered continue home med Vit D health heart diet GI ppx Protonix 40 PT eval& treat. deconditioning activity as tolerated - Date & Time Date: 11/25/17 Time: 03:10 <Vinay Urbano - Last Filed: 11/25/17 19:07> Results - Vital Signs Recent Vital Signs: Last Vital Signs Temp 98.3 F 11/25/17 18:00 Pulse 72 11/25/17 18:00 Resp 18 11/25/17 18:00 BP 146/94 H 11/25/17 18:00 Pulse Ox 99 11/25/17 18:00 - Labs Result Diagrams: 11/24/17 22:15 11/24/17 22:15 Labs: Laboratory Results - last 24 hr 11/25/17 11/25/17 11/25/17 03:00 03:00 06:00 APTT 26.8 D-Dimer, Quantitative 600 H Troponin I < 0.01 Triglycerides 76 Cholesterol 145 LDL Cholesterol Direct 87 HDL Cholesterol 32 Vitamin B12 269 25-OH Vitamin D Total TSH 3rd Generation 11/25/17 11/25/17 11/25/17 06:00 06:00 08:40 APTT D-Dimer, Quantitative Troponin I < 0.01 Triglycerides Cholesterol LDL Cholesterol Direct HDL Cholesterol Vitamin B12 25-OH Vitamin D Total 26.8 L TSH 3rd Generation 2.15 11/25/17 14:18 APTT D-Dimer, Quantitative Troponin I < 0.01 Triglycerides Cholesterol LDL Cholesterol Direct HDL Cholesterol Vitamin B12 25-OH Vitamin D Total TSH 3rd Generation Attending/Attestation - Attestation I have personally seen and examined this patient.: Yes I have fully participated in the care of the patient.: Yes I have reviewed all pertinent clinical information: Yes
[2017-11-25 07:08] LABS: HDL CHOLESTEROL 32 mg/dL (29-60)
[2017-11-25 07:19] LABS: LDL CHOLESTEROL 87 mg/dL (0-129)
[2017-11-25] MEDS: Albuterol-Ipratrop 3 mg / 0.5 (3 ml) UD IH SCH ×3 (07:31→20:15)
--- NOTE | 2017-11-25 10:03 | CT ---
Date of service: 11/25/2017 PROCEDURE: CT Chest with contrast (Pulmonary Angiogram) HISTORY: Rule out PE COMPARISON: Comparison made with prior CTA chest dated 12/05/2016. TECHNIQUE: Axial computed tomography images were obtained of the chest in the pulmonary arterial phase of enhancement. Coronal and sagittal reformatted images were created and reviewed. Intravenous contrast dose: 150 cc Omnipaque 350 contrast Radiation dose: Total exam DLP = 440.78 mGy-cm. This CT exam was performed using one or more of the following dose reduction techniques: Automated exposure control, adjustment of the mA and/or kV according to patient size, and/or use of iterative reconstruction technique. FINDINGS: PULMONARY ARTERIES: The visualized pulmonary trunk, right and left main, lobar, segmental and proximal subsegmental branches of the pulmonary arteries are well opacified with no definitive filling defects seen to suggest acute central pulmonary embolus. Pulmonary trunk is slightly prominent measuring approximately 3.0 cm. AORTA: No acute findings. No thoracic aortic aneurysm. Ascending thoracic aorta measures approximately 2.9 and descending thoracic aorta measures approximately 1.97 cm. LUNGS: Mild ground-glass opacities seen throughout the upper and lower lobes; rule out sequela of air trapping, mild chronic pulmonary edema, pneumonitis or mild pulmonary arterial hypertension. Chronic atelectasis or scarring changes seen both lung bases including the right middle lobe and to a lesser degree lingular regions. Note the focal consolidation is identified. PLEURAL SPACES: Unremarkable. No effusion or pneumothorax. HEART: Sternotomy and prosthetic valve replacement. . Heart size is mildly enlarged. . . Questionable trace pericardial effusion or pericardial thickening LYMPH NODES: Prominent sub- carinal lymph nodes are felt be present BONES, CHEST WALL: Unremarkable. No fracture or destructive lesion OTHER FINDINGS: There is a small hiatal hernia with slight wall thickening of distal esophagus likely due to protrusion of gastric mucosa. Possibility of esophagitis not excluded. Central airways midline and patent. No large central endoluminal lesions. IMPRESSION: No definitive radiographic evidence of acute central pulmonary embolus. . Postoperative changes of sternotomy and valve replacement. Cardiomegaly with questionable trace pericardial effusion or pericardial thickening. Mild ground-glass opacity seen throughout the upper and lower lobes nonspecific ; rule out air trapping, mild chronic pulmonary edema pneumonitis or mild pulmonary arterial hypertension. Chronic atelectasis and or scarring changes both lung bases as above. Prominent the sub carinal lymph nodes -nonspecific.
--- NOTE | 2017-11-25 12:05 | CARD ---
APPROVED REPORT Date of service: 11/25/2017 EXAM: Two-dimensional and M-mode echocardiogram with Doppler and color Doppler. INDICATION Dyspnea Chest Pain 2D DIMENSIONS Left Atrium (2D)4.4 (1.6-4.0cm)IVSd1.0 (0.7-1.1cm) LVDd3.7 (3.9-5.9cm)PWd1.0 (0.7-1.1cm) LVDs2.6 (2.5-4.0cm)FS (%) 28.6 % LVEF (%)55.9 (>50%) M-Mode DIMENSIONS Aortic Root2.90 (2.2-3.7cm)Aortic Cusp Exc.1.50 (1.5-2.0cm) Aortic Valve AoV Peak Xlccebxy739.0cm/Liseth Peak GR.17mmHg Mitral Valve MV E Qlitedra337.0cm/sMV A Lqepmeyp484.0cm/sMV [id number] E/A ratio1.1MVA (PHT)3.33cm2 TDI Lateral E' Peak V8.29cm/sMedial E' Peak V7.31cm/sE/Lateral E'22.1 E/Medial E'25.0 Pulmonary Valve PV Peak Vufpizwh54.7cm/sPV Peak Grad.2mmHg Tricuspid Valve TR Peak [id number]/sRAP [id number] Peak Gr.26mmHg [id number] LEFT VENTRICLE The left ventricle is normal size. There is normal left ventricular wall thickness. The left ventricular ejection fraction is within the normal range. Septal motion consistent with post-operative state. No left ventricle thrombus noted on this study. RIGHT VENTRICLE The right ventricle is normal size. There is normal right ventricular wall thickness. The right ventricular systolic function is normal. ATRIA The left atrium is mildly dilated. The right atrium is borderline dilated. AORTIC VALVE The aortic valve is mildly thickened. There is trace aortic regurgitation. There is no aortic valvular stenosis. MITRAL VALVE There is no mitral valve regurgitation noted. The prosthetic mitral valve is not well visualized due to imaging artifacts from the prosthesis. TRICUSPID VALVE The tricuspid valve is normal in structure. There is mild tricuspid regurgitation. There is mild pulmonary hypertension. PULMONIC VALVE The pulmonary valve is normal in structure. There is no pulmonic valvular regurgitation. GREAT VESSELS The aortic root is normal in size. PERICARDIAL EFFUSION There is a trace loculated anterior pericardial effusion. <Conclusion> The left ventricle is normal size. There is normal left ventricular wall thickness. The left ventricular ejection fraction is within the normal range. Septal motion consistent with post-operative state. The prosthetic mitral valve is not well visualized due to imaging artifacts from the prosthesis. There is mild tricuspid regurgitation. There is mild pulmonary hypertension.
--- NOTE | 2017-11-25 12:28 | CARD ---
APPROVED REPORT Date of service: 11/24/2017 EKG Measurement Heart [id number] NH 284P0 [id number] <Conclusion> Sinus rhythm with 1st degree AV block Otherwise normal ECG
--- NOTE | 2017-11-25 12:47 | CT ---
Date of service: 11/25/2017 PROCEDURE: CT NECK WITH CONTRAST HISTORY: Neck pain and difficulty swallowing COMPARISON: None available. TECHNIQUE: CT of the neck with intravenous contrast. Coronal and sagittal reformats generated. Intravenous contrast dose: 150 cc Omnipaque 350 Radiation dose: DLP 489.92 mGy-cm This CT exam was performed using one or more of the following dose reduction techniques: Automated exposure control, adjustment of the mA and/or kV according to patient size, and/or use of iterative reconstruction technique. FINDINGS: NASOPHARYNX: Unremarkable. SUPRAHYOID NECK: There is enlargement of the left palatine tonsil which encroaches medially into oral pharynx reducing the oropharyngeal airway. Findings likely represent sequela tonsillitis given the patient's clinical symptoms of neck pain with difficulty swallowing however direct visualization recommended to exclude the possibility of a neoplastic process such as squamous cell carcinoma. The prominent right palatine tonsil. There is mild asymmetry of the vallecular likely due to some encroaching lingual tonsil and possibly some residual/retained secretion. Free margin of the epiglottis are poorly delineated though does not appear significantly enlarged. Mild asymmetry of the pyriform sinuses left-side of which is not seen possibly due to a residual and/or retained secretion filling the pyriform sinus INFRAHYOID NECK: Unremarkable larynx, hypopharynx, and supraglottic space. Vocal cords intact. MASS: As above. GLANDS: Parotid and submandibular glands unremarkable. Normal size thyroid gland, without nodule. LYMPH NODES: There are a few small nonspecific bilateral cervical lymph nodes are which appear pathologically enlarged. CERVICAL SPINE: No fracture or focal lesion. VASCULAR STRUCTURES: Unremarkable. OTHER FINDINGS: Ascending thoracic aorta measures approximately 2.78 cm and descending thoracic aorta measures approximately 2.0 cm. Pulmonary trunk measures approximately 3.05 cm; rule out underlying mild pulmonary arterial hypertension. Sternotomy wires are present. IMPRESSION: There is enlargement of the left palatine tonsil likely due to a tonsillitis however no definitive evidence of peritonsillar abscess seen. Clinical correlation and direct visualization recommended to exclude the possibility of a underlying neoplasm such squamous cell carcinoma. Repeat CT scan following treatment could be performed to assess for improvement. . Note that the enlarged palatine tonsil encroaches medially reducing the oropharyngeal airway See above discussion for additional findings and details. Preliminary report provided by overnight radiology service
--- NOTE | 2017-11-25 12:54 | RAD ---
Date of service: 11/24/2017 HISTORY: CHF? COMPARISON: Noted comparison chest dated 12/06/2016 FINDINGS: LUNGS: Previously noted mild vascular congestive changes improved. PLEURA: No significant pleural effusion identified, no pneumothorax apparent. CARDIOVASCULAR: Sternotomy wires and prostate valves again seen. OSSEOUS STRUCTURES: No significant abnormalities. VISUALIZED UPPER ABDOMEN: Normal. OTHER FINDINGS: None. IMPRESSION: Previously noted mild vascular congestive changes improved
[2017-11-25] MEDS: Fluticasone Nasal 50 mcg/Spray NS SCH (14:56)
[2017-11-26] MEDS: Albuterol-Ipratrop 3 mg / 0.5 (3 ml) UD IH SCH ×4 (01:22→19:16)
[2017-11-26 08:02] LABS: BASO # 0.01 K/mm3 (0.0-2.0); BASO % 0.1 % (0.0-3.0); EOS # 0.1 (0.0-0.7); EOS % 1.6 % (1.5-5.0); GRAN # 5.34 (1.4-6.5); GRAN % 67.4 % (50.0-68.0); HEMOGLOBIN 11.6 g/dL (12.0-16.0); LYMPH # 2.1 (1.2-3.4); LYMPH % 26.4 % (22.0-35.0); MEAN CELL VOLUME 90.2 fl (80.0-105.0); MEAN CORPUSCULAR HEMOGLOBIN 30.1 pg (25.0-35.0); MEAN CORPUSCULAR HGB CONC 33.3 g/dl (31.0-37.0); MEAN PLATELET VOLUME 9.4 fl (7.0-11.0); MONO # 0.4 (0.1-0.6); MONO % 4.5 % (1.0-6.0); RBC 3.86 10^6/uL (3.5-6.1); RED CELL DISTRIBUTION WIDTH 12.8 % (11.5-14.5); WHITE BLOOD COUNT 7.9 10^3/ul (4.5-11.0)
[2017-11-26 08:07] LABS: ALB/GLOB RATIO 1.1 (1.1-1.8); ALBUMIN 3.7 g/dL (3.0-4.8); ALT/SGPT 20 U/L (7-56); AST/SGOT 18 U/L (14-36); BLOOD UREA NITROGEN 14 mg/dL (7-21); CALCIUM 8.7 mg/dL (8.4-10.5); GFR AFRICAN-AMERICAN > 60; GFR NON-AFRICAN AMERICAN > 60
[2017-11-26] MEDS ORDERED: POLYETHYLENE GLYCOL 3350 17 GM/Dose PACKET PO ONE (08:43)
--- NOTE | 2017-11-26 09:39 | CP.PCM.PN ---
<Juliocesar Ayers - Last Filed: 11/26/17 09:36> Subjective - Date & Time of Evaluation Date of Evaluation: 11/26/17 Time of Evaluation: 09:36 - Subjective Subjective: Juliocesar Ayers, PGY-1, Internal Medicine Progress Note for Dr. Rosen Patient seen and examined this morning. No acute overnight events. Patient today denies chest pain, heart palpitations, shortness of breath, nausea, vomiting, diarrhea, constipation, dysuria, and hematuria. Objective - Vital Signs/Intake and Output Vital Signs (last 24 hours): Temp Pulse Resp BP Pulse Ox 97.3 F L 71 20 111/73 98 11/26/17 06:00 11/26/17 06:00 11/26/17 06:00 11/26/17 06:00 11/26/17 06:00 Intake and Output: 11/26/17 11/26/17 06:59 18:59 Intake Total 1100 Balance 1100 - Medications Medications: Current Medications Albuterol/Ipratropium (Duoneb 3 Mg/0.5 Mg (3 Ml) Ud) 3 ml IH Q2H PRN PRN Reason: Shortness of Breath Albuterol/Ipratropium (Duoneb 3 Mg/0.5 Mg (3 Ml) Ud) 3 ml IH [id number] [facility] Last Admin: 11/26/17 08:01 Dose: 3 ml Alprazolam (Xanax) 0.25 mg PO ONCE PRN; Protocol PRN Reason: Anxiety Stop: 12/02/17 12:06 Aspirin (Aspirin Chewable) 81 mg PO DAILY [facility] Last Admin: 11/25/17 09:39 Dose: 81 mg Cyclobenzaprine HCl (Flexeril) 5 mg PO BID [facility] Last Admin: 11/25/17 17:10 Dose: 5 mg Docusate Sodium (Colace) 100 mg PO DAILY [facility] Fluticasone Propionate (Flonase) 1 actuation NS DAILY [facility] Last Admin: 11/25/17 14:56 Dose: 1 sprays Heparin Sodium (Porcine) (Heparin) 5,000 units SC Q12 JESS PRN Reason: Protocol Last Admin: 11/25/17 21:53 Dose: 5,000 units Ampicillin Sodium/Sulbactam (Sodium 3 gm/ Sodium Chloride) 100 mls @ 200 mls/ hr IVPB Q6 JESS PRN Reason: Protocol Last Admin: 11/26/17 06:08 Dose: 200 mls/hr Ibuprofen (Motrin Tab) 600 mg PO Q6H PRN PRN Reason: Pain, moderate (4-7) Metoprolol Tartrate (Lopressor) 50 mg PO BID [facility] Last Admin: 11/25/17 17:10 Dose: 50 mg Pantoprazole Sodium (Protonix Inj) 40 mg IVP DAILY [facility] Last Admin: 11/25/17 09:39 Dose: 40 mg - Labs Labs: 11/26/17 06:30 11/26/17 06:30 PT 12.9 SECONDS (9.4-12.5) H 11/24/17 22:15 INR 1.13 11/24/17 22:15 APTT 26.8 Seconds (25.1-36.5) 11/25/17 03:00 - Constitutional Appears: Well, Non-toxic - Head Exam Head Exam: ATRAUMATIC, NORMOCEPHALIC - Eye Exam Eye Exam: EOMI, PERRL - Respiratory Exam Respiratory Exam: Clear to Ausculation Bilateral, NORMAL BREATHING PATTERN - Cardiovascular Exam Cardiovascular Exam: REGULAR RHYTHM, RRR - GI/Abdominal Exam GI & Abdominal Exam: Soft, Normal Bowel Sounds - Extremities Exam Extremities Exam: Full ROM, Normal Inspection - Neurological Exam Neurological Exam: Alert, Awake, CN II-XII Intact, Oriented x3 Neuro motor strength exam: Left Upper Extremity: 5, Right Upper Extremity: 5, Left Lower Extremity: 5, Right Lower Extremity: 5 - Psychiatric Exam Psychiatric exam: Normal Affect, Normal Mood - Skin Skin Exam: Dry, Intact, Normal Color Assessment and Plan - Assessment and Plan (Free Text) Assessment: 46 year old female with past medical history of hypertension, rheumatic heart disease status post mitral valve surgeryx3 presents with shortness of breath on exertion for more than 4 months. Plan: Left Palantine Tonsil Enlargement 2/2 to tonsillitis -Rule out squamous cell carcinoma -CT Head and Neck: enlargement of left palatine tonsil likely due to tonsilitis. No definitive evidence for peritonsillar abscess. Clinical correlation and direct visualization recommended to exlude possibility of underlying neoplasm such as squamous cell carcinoma. Enlarged palatine tonsil encroaches medially reducing the oropharyngeal airway. -Radiology recommends repeat CT following treatment to assess for improvement. -ESR: 55 -On physical examination, likely due to tonsillitis. -Blood culture, urine culture results pending -Unisyn 3 gm Q6 -Dr. Haque, ENT, consulted. Follow recommendations. Elevated D-dimer -D-dimer: 600 on 11/25 -Pulmonary embolism ruled out with Chest CT -Chest CT (11/25): no definitive radiographic evidence of acute central pulmonary embolus. Postop changes of sternotomy and valve replacement. Cardiomegaly with questionable trace pericardial effusion or pericardial thickening. Mild ground-glass opacity seen throughout the upper and lower lobes nonspecific; rule out air trapping, mild chronic pulmonary edema, pneumonitis, or mild pulmonary arterial hypertension. Chronic atelectasis and or scarring changes both lung bases above. -EKG (11/24): sinus rhythm with 1st degree AV block. Otherwise normal EKG. HR: 69 , MI: 284, QRS: 72 QTc: 430 History of Rheumatic Disease with mitral valve dysfunction status mitral valuve surgeriesx3 -Patient with complaints of chest pain, dyspnea, moderate hoarseness suspicious for issues with new found issues of mitral valve. -Echocardiogram (11/25): LVEF: 55.9%. Septal motion consistent with post operative state. Prosthetic mitral valve is not well visualized due to imaging artifacts from the prosthesis. Mild tricuspid regurgitation. -Chest CT (11/25): no definitive radiographic evidence of acute central pulmonary embolus. Postop changes of sternotomy and valve replacement. Cardiomegaly with questionable trace pericardial effusion or pericardial thickening. Mild ground-glass opacity seen throughout the upper and lower lobes nonspecific; rule out air trapping, mild chronic pulmonary edema, pneumonitis, or mild pulmonary arterial hypertension. Chronic atelectasis and or scarring changes both lung bases above. -Troponinx2 negative -BNP: 287 -I and O: Intake: 1680 -Weight: 148 from 146 lbs yesterday. -Heart Healthy Diet -Aspirin 81 mg daily -Metoprolol tartrate 50 mg BID -Flonase 1 actuation daily, duonebs Q2PRN, for respiratory distress -Dr. De La Cruz, District [employer] Administrator, consulted. Follow recommendations. History of hypertension -Lipid panel: Cholesterol: 145, LDL: 87, HDL: 32, Triglycerides: 76 -Continue home metoprolol 50 mg BID and aspirin 81 mg. -Awaiting Hemoglobin A1c results. Musculoskeletal Chest Pain -Motrin 600 mg Q6PRN -Cyclobenzaprine 5 mg BID History of anxiety -xanax 0.25 mg PO once PRN Constipation -docusate 100 mg daily Vitamin D deficiency -25-OH Vitamin D: 26.8 on 11/25 -Calcium Carbonate and Vitamin D 1 tab daily ordered. Normocytic Anemia -Hgb: 11.6 from 13.5 on 11/25 -Continue to monitor GI prophylaxis: protonix 40 mg daily DVT prophylaxis: heparin 5000 U Q12 <RangSudhir snea - Last Filed: 11/26/17 18:53> Objective - Vital Signs/Intake and Output Vital Signs (last 24 hours): Temp Pulse Resp BP Pulse Ox 98.3 F 70 18 124/81 98 11/26/17 14:57 11/26/17 17:29 11/26/17 14:57 11/26/17 17:29 11/26/17 14:57 Intake and Output: 11/26/17 11/26/17 06:59 18:59 Intake Total 1100 Balance 1100 - Medications Medications: Current Medications Albuterol/Ipratropium (Duoneb 3 Mg/0.5 Mg (3 Ml) Ud) 3 ml IH Q2H PRN PRN Reason: Shortness of Breath Albuterol/Ipratropium (Duoneb 3 Mg/0.5 Mg (3 Ml) Ud) 3 ml IH [id number] [facility] Last Admin: 11/26/17 13:04 Dose: 3 ml Alprazolam (Xanax) 0.25 mg PO ONCE PRN; Protocol PRN Reason: Anxiety Stop: 12/02/17 12:06 Aspirin (Aspirin Chewable) 81 mg PO DAILY [facility] Last Admin: 11/26/17 09:49 Dose: 81 mg Calcium/Vitamin D (Oscal-D 250 Mg-125 Units Tab) 1 tab PO DAILY [facility] Cyclobenzaprine HCl (Flexeril) 5 mg PO BID [facility] Last Admin: 11/26/17 17:29 Dose: 5 mg Docusate Sodium (Colace) 100 mg PO DAILY [facility] Last Admin: 11/26/17 09:49 Dose: 100 mg Fluticasone Propionate (Flonase) 1 actuation NS DAILY [facility] Last Admin: 11/26/17 09:50 Dose: 1 sprays Heparin Sodium (Porcine) (Heparin) 5,000 units SC Q12 JESS PRN Reason: Protocol Last Admin: 11/26/17 09:50 Dose: 5,000 units Ampicillin Sodium/Sulbactam (Sodium 3 gm/ Sodium Chloride) 100 mls @ 200 mls/ hr IVPB Q6 JESS PRN Reason: Protocol Last Admin: 11/26/17 17:30 Dose: 200 mls/hr Ibuprofen (Motrin Tab) 600 mg PO Q6H PRN PRN Reason: Pain, moderate (4-7) Metoprolol Tartrate (Lopressor) 50 mg PO BID [facility] Last Admin: 11/26/17 17:29 Dose: 50 mg Pantoprazole Sodium (Protonix Inj) 40 mg IVP DAILY [facility] Last Admin: 11/26/17 09:51 Dose: 40 mg - Labs Labs: 11/26/17 06:30 11/26/17 06:30 PT 12.9 SECONDS (9.4-12.5) H 11/24/17 22:15 INR 1.13 11/24/17 22:15 APTT 26.8 Seconds (25.1-36.5) 11/25/17 03:00 Attending/Attestation - Attestation I have personally seen and examined this patient.: Yes I have fully participated in the care of the patient.: Yes I have reviewed all pertinent clinical information, including history, physical exam and plan: Yes Notes (Text): 11/26/17 18:49 Attending note; Patient seen and examined with resident. Patient is a 46-year-old female with the past medical history of hypertension, rheumatic heart disease status post mitral valve surgeryx3 presents with shortness of breath on exertion for more than 4 months. patient was admitted to telemetry and monitored closely. currently patient denies any chest pain, shortness of breath. ambulating without any difficulty. Complaining of mild throat discomfort. Able to tolerate diet. Cardiac enzymes negative. Echo without significant valvular dysfunction. cardiology evaluation with Dr. Venegas appreciated. Severe left-sided tonsillitis; on IV unasyn. Improving. Pending ENT evaluation. Possible DC tomorrow. upon discharge patient will follow up with PMD DR. partida. 11/26/17 18:52
[2017-11-26] MEDS: Fluticasone Nasal 50 mcg/Spray NS SCH (09:50)
--- NOTE | 2017-11-26 10:58 | CON ---
Copied To: Ronal Venegas MD Attending MD: Ronal Venegas MD DATE: 11/26/2017 CARDIOLOGY CONSULTATION Cardiology consult (for Dr. Addison). HISTORY: The patient is a 46-year-old woman, who presents with chest pain and dyspnea. The patient's past medical history includes a history of severe mitral regurgitation, which resulted in mitral valve replacement last year. She currently is asymptomatic without chest pain, without shortness of breath. Her past medical history includes intermittent fluid overload which she is on Lasix at home and she is on metoprolol. She is followed by her private internet marketing assistant, . She denies chest pain this morning. She denies shortness of breath. Denies cough. SOCIAL HISTORY: The patient does not smoke. REVIEW OF SYSTEMS: Fourteen-point review of systems is reviewed in detail. No additional symptoms from above. PHYSICAL EXAMINATION: VITAL SIGNS: Blood pressure is 112/68, heart rate is in the 60s. NECK: Negative JVD. LUNGS: Without rales. HEART: Reveals S1, S2. EXTREMITIES: Without edema. LABORATORY DATA: Laboratories include an EKG, which is unchanged. Hemoglobin is 11.6. Chemistries: BUN and creatinine are unremarkable. Troponins are negative x2. ProBNP is 287. IMPRESSION: 1. Transient dyspnea. 2. No evidence for acute coronary syndrome. 3. History of documented normal coronary arteries. 4. History of mitral regurgitation, treated with mitral valve replacement. PLAN: Given these findings, there is no evidence that her symptoms are cardiac in nature. We will discontinue telemetry today. From a cardiac perspective, the patient can be discharged. She needs to follow up with her internet marketing assistant in which the patient is agreeable. Ronal Venegas MD
[2017-11-27] MEDS: Albuterol-Ipratrop 3 mg / 0.5 (3 ml) UD IH SCH ×3 (01:11→13:53)
[2017-11-27 06:49] LABS: BASO # 0.02 K/mm3 (0.0-2.0); BASO % 0.2 % (0.0-3.0); EOS # 0.2 (0.0-0.7); EOS % 1.9 % (1.5-5.0); GRAN # 5.24 (1.4-6.5); GRAN % 65.2 % (50.0-68.0); LYMPH # 2.2 (1.2-3.4); LYMPH % 27.7 % (22.0-35.0); MEAN CELL VOLUME 91.2 fl (80.0-105.0); MEAN CORPUSCULAR HEMOGLOBIN 30.2 pg (25.0-35.0); MEAN CORPUSCULAR HGB CONC 33.1 g/dl (31.0-37.0); MEAN PLATELET VOLUME 9.3 fl (7.0-11.0); MONO # 0.4 (0.1-0.6); RBC 3.98 10^6/uL (3.5-6.1); RED CELL DISTRIBUTION WIDTH 12.9 % (11.5-14.5)
[2017-11-27 06:57] LABS: ALB/GLOB RATIO 1.1 (1.1-1.8); ALBUMIN 3.6 g/dL (3.0-4.8); ALT/SGPT 19 U/L (7-56); AST/SGOT 19 U/L (14-36); BLOOD UREA NITROGEN 13 mg/dL (7-21); CALCIUM 8.6 mg/dL (8.4-10.5); GFR AFRICAN-AMERICAN > 60; GFR NON-AFRICAN AMERICAN > 60
--- NOTE | 2017-11-27 08:32 | CON ---
Copied To: Tonio Gordon DO Attending MD: Tonio Gordon DO DATE: 11/26/2017 HISTORY OF PRESENT ILLNESS: This is a 46-year-old female with 2-week history of progressive sore throat, some shortness of breath, who was seen in the emergency room here at [facility] on 11/25/2017. Found the patient short of breath and was having some hand and arm pain as well as jaw pain and was admitted for cardiac evaluation, which proved to be essentially negative. On CT scan of the neck, there was evidence of left palatine tonsillar enlargement with some nonspecific adenopathy present. The patient states that she was not placed on antibiotics as an outpatient and had no prior history of previous recurrent tonsillitis in the past. The patient denied smoking or EtOH abuse. PHYSICAL EXAMINATION: GENERAL: The patient is alert and oriented x3. LUNGS: Bilaterally clear to auscultation and percussion. HEAD AND NECK: Examination revealed evidence of left palatine tonsillar enlargement with no induration on palpation noted. There was some mild adenopathy noted bilaterally within the neck reaching the regions. Nasal examination revealed slight sub-deviation. Tympanic membranes were normal. NEUROLOGICAL: Cranial II through XII grossly intact. IMPRESSION: The patient has a left tonsillar enlargement, possible inflammatory and infectious versus neoplastic process. PLAN: Plan was to have her continue taking antibiotics for approximately a 10-day course, Augmentin as an outpatient would be sufficient. Gradually advance her diet and have her followup with us in a 1 week time span for reevaluation and outpatient fiberoptic laryngoscopy in the office. If you have any further questions regarding the care of this patient, feel free to contact my office. Tonio Gordon DO
--- NOTE | 2017-11-27 08:54 | CP.PCM.PN ---
Subjective - Date & Time of Evaluation Date of Evaluation: 11/27/17 Time of Evaluation: 07:00 Objective - Vital Signs/Intake and Output Vital Signs (last 24 hours): Temp Pulse Resp BP Pulse Ox 98.1 F 69 20 126/75 100 11/27/17 06:00 11/27/17 06:00 11/27/17 06:00 11/27/17 06:00 11/27/17 06:00 Intake and Output: 11/27/17 11/27/17 06:59 18:59 Intake Total 660 Balance 660 - Medications Medications: Current Medications Albuterol/Ipratropium (Duoneb 3 Mg/0.5 Mg (3 Ml) Ud) 3 ml IH Q2H PRN PRN Reason: Shortness of Breath Albuterol/Ipratropium (Duoneb 3 Mg/0.5 Mg (3 Ml) Ud) 3 ml IH [id number] [facility] Last Admin: 11/27/17 07:28 Dose: 3 ml Alprazolam (Xanax) 0.25 mg PO ONCE PRN; Protocol PRN Reason: Anxiety Stop: 12/02/17 12:06 Last Admin: 11/27/17 00:31 Dose: 0.25 mg Aspirin (Aspirin Chewable) 81 mg PO DAILY [facility] Last Admin: 11/26/17 09:49 Dose: 81 mg Calcium/Vitamin D (Oscal-D 250 Mg-125 Units Tab) 1 tab PO DAILY [facility] Cyclobenzaprine HCl (Flexeril) 5 mg PO BID [facility] Last Admin: 11/26/17 17:29 Dose: 5 mg Docusate Sodium (Colace) 100 mg PO DAILY [facility] Last Admin: 11/26/17 09:49 Dose: 100 mg Fluticasone Propionate (Flonase) 1 actuation NS DAILY [facility] Last Admin: 11/26/17 09:50 Dose: 1 sprays Heparin Sodium (Porcine) (Heparin) 5,000 units SC Q12 JESS PRN Reason: Protocol Last Admin: 11/26/17 22:35 Dose: 5,000 units Ampicillin Sodium/Sulbactam (Sodium 3 gm/ Sodium Chloride) 100 mls @ 200 mls/ hr IVPB Q6 JESS PRN Reason: Protocol Last Admin: 11/27/17 05:56 Dose: 200 mls/hr Ibuprofen (Motrin Tab) 600 mg PO Q6H PRN PRN Reason: Pain, moderate (4-7) Last Admin: 11/27/17 00:31 Dose: 600 mg Metoprolol Tartrate (Lopressor) 50 mg PO BID [facility] Last Admin: 11/26/17 17:29 Dose: 50 mg Pantoprazole Sodium (Protonix Inj) 40 mg IVP DAILY [facility] Last Admin: 11/26/17 09:51 Dose: 40 mg - Labs Labs: 11/27/17 06:15 11/27/17 06:15 PT 12.9 SECONDS (9.4-12.5) H 11/24/17 22:15 INR 1.13 11/24/17 22:15 APTT 26.8 Seconds (25.1-36.5) 11/25/17 03:00
[2017-11-27] MEDS ORDERED: Calcium-Vit D 250 mg-125 Units Tab UD PO SCH (10:00)
[2017-11-27] MEDS: Fluticasone Nasal 50 mcg/Spray NS SCH (11:04)
[2017-11-27 15:15] VITALS: BP 113/69; PULSE 78; RESP 18; TEMP 98.2; O2SAT 97
--- NOTE | 2017-11-27 16:26 | CP.PCM.DIS ---
<Nasir Scott - Last Filed: 11/27/17 17:32> Provider - Provider Date of Admission: 11/25/17 00:32 Attending physician: Kristin Espinosa DO Primary care physician: Jorge Yanes MD Consults: Ronal Venegas MD Cardiology Tonio Gordon MD ENT Time Spent in preparation of Discharge (in minutes): 45 Hospital Course - Lab Results Lab Results: Most Recent Lab Values WBC 8.0 10^3/ul (4.5-11.0) 11/27/17 06:15 RBC 3.98 10^6/uL (3.5-6.1) 11/27/17 06:15 Hgb 12.0 g/dL (12.0-16.0) 11/27/17 06:15 Hct 36.3 % (36.0-48.0) 11/27/17 06:15 MCV 91.2 fl (80.0-105.0) 11/27/17 06:15 MCH 30.2 pg (25.0-35.0) 11/27/17 06:15 MCHC 33.1 g/dl (31.0-37.0) 11/27/17 06:15 RDW 12.9 % (11.5-14.5) 11/27/17 06:15 Plt Count 379 10^3/uL (120.0-450.0) 11/27/17 06:15 MPV 9.3 fl (7.0-11.0) 11/27/17 06:15 Gran % 65.2 % (50.0-68.0) 11/27/17 06:15 Lymph % (Auto) 27.7 % (22.0-35.0) 11/27/17 06:15 [place] % (Auto) 5.0 % (1.0-6.0) 11/27/17 06:15 Eos % (Auto) 1.9 % (1.5-5.0) 11/27/17 06:15 Baso % (Auto) 0.2 % (0.0-3.0) 11/27/17 06:15 Gran # 5.24 (1.4-6.5) 11/27/17 06:15 Lymph # (Auto) 2.2 (1.2-3.4) 11/27/17 06:15 [place] # (Auto) 0.4 (0.1-0.6) 11/27/17 06:15 Eos # (Auto) 0.2 (0.0-0.7) 11/27/17 06:15 Baso # (Auto) 0.02 K/mm3 (0.0-2.0) 11/27/17 06:15 ESR 55 mm/hr (0.0-20.0) H 11/24/17 22:15 PT 12.9 SECONDS (9.4-12.5) H 11/24/17 22:15 INR 1.13 11/24/17 22:15 APTT 26.8 Seconds (25.1-36.5) 11/25/17 03:00 D-Dimer, Quantitative 600 ng/mlDDU (0-243) H 11/25/17 03:00 pO2 30 mm/Hg (30-55) 11/24/17 22:15 ABG Carboxyhemoglobin 1.9 % (0.5-1.5) H 11/24/17 22:15 POC ABG HHb (Measured) 41.9 % (0-5) H 11/24/17 22:15 ABG Methemoglobin 0.5 % (0.0-3.0) 11/24/17 22:15 VBG pH 7.32 (7.32-7.43) 11/24/17 22:15 VBG pCO2 54.0 (40-60) 11/24/17 22:15 VBG HCO3 27.8 mmol/l (21-28) 11/24/17 22:15 VBG O2 Sat (Calc) 57.1 % (40-65) 11/24/17 22:15 VBG Base Excess 0.6 mmol/L (0.0-2.0) 11/24/17:15 VBG Hgb O2 Saturation 55.7 % (95.0-98.0) L 11/24/17 22:15 Hemoglobin 13.9 g/dL (11.7-17.4) 11/24/17 22:15 Sodium 141 mmol/L (132-148) 11/27/17 06:15 Potassium 5.0 mmol/L (3.6-5.0) 11/27/17 06:15 Chloride 106 mmol/L (98-107) 11/27/17 06:15 Carbon Dioxide 26 mmol/L (21-33) 11/27/17 06:15 Anion Gap 14 (10-20) 11/27/17 06:15 BUN 13 mg/dL (7-21) 11/27/17 06:15 Creatinine 0.7 mg/dl (0.7-1.2) 11/27/17 06:15 Est GFR ( Amer) > 60 11/27/17 06:15 Est GFR (Non-Af Amer) > 60 11/27/17 06:15 Random Glucose 82 mg/dL (70-110) 11/27/17 06:15 Hemoglobin A1c 5.2 % (4.2-6.5) 11/25/17 06:00 Calcium 8.6 mg/dL (8.4-10.5) 11/27/17 06:15 Phosphorus 3.3 mg/dL (2.5-4.5) 11/27/17 06:15 Magnesium 2.2 mg/dL (1.7-2.2) 11/27/17 06:15 Total Bilirubin 0.3 mg/dL (0.2-1.3) 11/27/17 06:15 AST 19 U/L (14-36) 11/27/17 06:15 ALT 19 U/L (7-56) 11/27/17 06:15 Alkaline Phosphatase 60 U/L (38-126) 11/27/17 06:15 Troponin I < 0.01 ng/mL 11/25/17 14:18 C-React Prot High Sens > 15.00 mg/L (1.00-3.00) H 11/24/17 22:15 NT-Pro-B Natriuret Pep 287 pg/mL (0-450) 11/24/17 22:15 Total Protein 7.0 g/dL (5.8-8.3) 11/27/17 06:15 Albumin 3.6 g/dL (3.0-4.8) 11/27/17 06:15 Globulin 3.4 gm/dL 11/27/17 06:15 Albumin/Globulin Ratio 1.1 (1.1-1.8) 11/27/17 06:15 Triglycerides 76 mg/dL (35-160) 11/25/17 06:00 Cholesterol 145 mg/dL (130-200) 11/25/17 06:00 LDL Cholesterol Direct 87 mg/dL (0-129) 11/25/17 06:00 HDL Cholesterol 32 mg/dL (29-60) 11/25/17 06:00 Vitamin B12 269 pg/mL (239-931) 11/25/17 06:00 25-OH Vitamin D Total 26.8 NG/ML (30.0-100.0) L 11/25/17 06:00 Procalcitonin 0.05 NG/ML (0.19-0.49) L 11/24/17 22:15 TSH 3rd Generation 2.15 mIU/mL (0.46-4.68) 11/25/17 06:00 Urine Color Yellow (YELLOW) 11/24/17 23:22 Urine Appearance Clear (CLEAR) 11/24/17 23:22 Urine pH 6.0 (4.7-8.0) 11/24/17 23:22 Ur Specific [place] 1.025 (1.005-1.035) 11/24/17 23:22 Urine Protein Negative mg/dL (<30 mg/dL) 11/24/17 23:22 Urine Glucose (UA) Negative mg/dL (NEGATIVE) 11/24/17 23:22 Urine Ketones Negative mg/dL (NEGATIVE) 11/24/17 23:22 Urine Blood Trace-lysed (NEGATIVE) H 11/24/17 23:22 Urine Nitrate Negative (NEGATIVE) 11/24/17 23:22 Urine Bilirubin Negative (NEGATIVE) 11/24/17 23:22 Urine Urobilinogen 0.2 E.U./dL (<1 E.U./dL) 11/24/17 23:22 Ur Leukocyte Esterase Negative Karen/uL (NEGATIVE) 11/24/17 23:22 Urine RBC 1 - 3 /hpf (0-2) 11/24/17 23:22 Urine WBC 0 - 2 /hpf (0-6) 11/24/17 23:22 Ur Epithelial Cells 3 - 4 /hpf (0-5) 11/24/17 23:22 Urine Bacteria Few (NEG) 11/24/17 23:22 - Hospital Course Hospital Course: On 11/24/17 Patient presents to the emergency department complaining of SOB for more than 4 months on mild to moderate exertion, getting worse for the last one week. Patient also c/o bulging on her anterior neck, appears when coughing, straining during bowel movement, bending forward. continue home meds Metoprolol 50 BID, ASA 81, CXR: no cardiomegaly EKG: sinus rhythm with 1st degree AV block Echo shows normal EF, no valvular dysfunction BNP 287 Trop (-) x3 D-dimer 600 CTA chest: No PE CT neck w/o contrast(11/25): left palatine tonsil enlargement likely due to tonsillitis, no evidence of peritonsillar abscess. Recommended to exclude malignancy such as sqamous cell carcinoma using direct visualization. Repeat CT neck following treatment. Cardiology consult, Dr Ronal Venegas(11/26): Transient dyspnea, no evidence of cardiac etiology. Telemetry discontinued. Patient to follow up with her [facility]. ENT consult, Dr Gordon(11/26): patient has left tonsillar enlargement, possible inflammatory,infectious or neoplastic process. Continue Augmentin as an outpatient for 10 days then follow up in the office for fiberoptic laryngoscopy. - Date & Time of H&P Date of H&P: 11/25/17 Time of H&P: 05:46 Discharge Exam - Head Exam Head Exam: ATRAUMATIC, NORMOCEPHALIC - Eye Exam Eye Exam: EOMI, Normal appearance, PERRL Pupil Exam: NORMAL ACCOMODATION, PERRL - ENT Exam Additional comments: enlarged tonsils - Neck Exam Neck exam: Lymphadenopathy (left submandibular lymphadenopathy), Tenderness (on palpation to SCM muscle) - Cardiovascular Exam Cardiovascular Exam: +S1, +S2 - GI/Abdominal Exam GI & Abdominal Exam: Normal Bowel Sounds - Rectal Exam Rectal Exam: NORMAL INSPECTION - Exam Exam: Circumcision, NORMAL INSPECTION External exam: NORMAL EXTERNAL EXAM Speculum exam: NORMAL SPECULUM EXAM Bimanual exam: NORMAL BIMANUAL EXAM - Back Exam Back exam: NORMAL INSPECTION. absent: CVA tenderness (L), CVA tenderness (R) - Neurological Exam Neurological exam: Alert, CN II-XII Intact, Normal Gait, Oriented x3, Reflexes Normal - Psychiatric Exam Psychiatric exam: Normal Affect, Normal Mood - Skin Skin Exam: Dry, Intact, Normal Color, Warm Discharge Plan - Discharge Medications Prescriptions: Amoxicillin/Clavulanate [Augmentin 875 MG-125 MG] 1 tab PO BID 10 Days #20 tab Cholecalciferol (Vitamin D3) [Vitamin D3] 50,000 unit PO QWK #4 capsule Lactobacillus Acidophilus [Acidophilus Lactobacilli] 1 each PO BID 10 Days #20 capsule - Follow Up Plan Condition: GOOD Disposition: HOME/ ROUTINE Instructions: Sore Throat, Adult (DC), Shortness of Breath (Dyspnea) (DC), Acute Pain, Adult (DC), Chest Pain (DC), Hypertension (DC), Hypertension (GEN) Additional Instructions: Follow up with your primary medical doctor Justyn Yanes in 3-5 days upon discharge Follow up with ENT Dr. Gordon within 1 week upon discharge for further work up for your throat Take medications as prescribed to you, including new medications as below: - Augmentin 875mg-125mg Twice a day by mouth for 10 days, please take with food - Lactobacillus Acidophilus 1 Tab by mouth twice a day for 10 days If you experience difficulty swallowing liquids, trouble breathing, drooling, persistent fever unchanged by Tylenol, persistent headache unrelieved by over the counter medication please return to nearest ED Referrals: Tonio Gordon DO [[facility]] - Clinical Quality Measures - CQM - VTE Is patient being discharged on overlap therapy?: No <Kristin Espinosa - Last Filed: 11/28/17 17:20> Provider - Provider Date of Admission: 11/25/17 00:32 Attending physician: Kristin Espinosa DO Hospital Course - Lab Results Lab Results: Most Recent Lab Values WBC 8.0 10^3/ul (4.5-11.0) 11/27/17 06:15 RBC 3.98 10^6/uL (3.5-6.1) 11/27/17 06:15 Hgb 12.0 g/dL (12.0-16.0) 11/27/17 06:15 Hct 36.3 % (36.0-48.0) 11/27/17 06:15 MCV 91.2 fl (80.0-105.0) 11/27/17 06:15 MCH 30.2 pg (25.0-35.0) 11/27/17 06:15 MCHC 33.1 g/dl (31.0-37.0) 11/27/17 06:15 RDW 12.9 % (11.5-14.5) 11/27/17 06:15 Plt Count 379 10^3/uL (120.0-450.0) 11/27/17 06:15 MPV 9.3 fl (7.0-11.0) 11/27/17 06:15 Gran % 65.2 % (50.0-68.0) 11/27/17 06:15 Lymph % (Auto) 27.7 % (22.0-35.0) 11/27/17 06:15 [place] % (Auto) 5.0 % (1.0-6.0) 11/27/17 06:15 Eos % (Auto) 1.9 % (1.5-5.0) 11/27/17 06:15 Baso % (Auto) 0.2 % (0.0-3.0) 11/27/17 06:15 Gran # 5.24 (1.4-6.5) 11/27/17 06:15 Lymph # (Auto) 2.2 (1.2-3.4) 11/27/17 06:15 [place] # (Auto) 0.4 (0.1-0.6) 11/27/17 06:15 Eos # (Auto) 0.2 (0.0-0.7) 11/27/17 06:15 Baso # (Auto) 0.02 K/mm3 (0.0-2.0) 11/27/17 06:15 ESR 55 mm/hr (0.0-20.0) H 11/24/17 22:15 PT 12.9 SECONDS (9.4-12.5) H 11/24/17 22:15 INR 1.13 11/24/17 22:15 APTT 26.8 Seconds (25.1-36.5) 11/25/17 03:00 D-Dimer, Quantitative 600 ng/mlDDU (0-243) H 11/25/17 03:00 pO2 30 mm/Hg (30-55) 11/24/17 22:15 ABG Carboxyhemoglobin 1.9 % (0.5-1.5) H 11/24/17 22:15 POC ABG HHb (Measured) 41.9 % (0-5) H 11/24/17 22:15 ABG Methemoglobin 0.5 % (0.0-3.0) 11/24/17 22:15 VBG pH 7.32 (7.32-7.43) 11/24/17 22:15 VBG pCO2 54.0 (40-60) 11/24/17 22:15 VBG HCO3 27.8 mmol/l (21-28) 11/24/17 22:15 VBG O2 Sat (Calc) 57.1 % (40-65) 11/24/17 22:15 VBG Base Excess 0.6 mmol/L (0.0-2.0) 11/24/17 22:15 VBG Hgb O2 Saturation 55.7 % (95.0-98.0) L 11/24/17 22:15 Hemoglobin 13.9 g/dL (11.7-17.4) 11/24/17 22:15 Sodium 141 mmol/L (132-148) 11/27/17 06:15 Potassium 5.0 mmol/L (3.6-5.0) 11/27/17 06:15 Chloride 106 mmol/L (98-107) 11/27/17 06:15 Carbon Dioxide 26 mmol/L (21-33) 11/27/17 06:15 Anion Gap 14 (10-20) 11/27/17 06:15 BUN 13 mg/dL (7-21) 11/27/17 06:15 Creatinine 0.7 mg/dl (0.7-1.2) 11/27/17 06:15 Est GFR ( Amer) > 60 11/27/17 06:15 Est GFR (Non-Af Amer) > 60 11/27/17 06:15 Random Glucose 82 mg/dL (70-110) 11/27/17 06:15 Hemoglobin A1c 5.2 % (4.2-6.5) 11/25/17 06:00 Calcium 8.6 mg/dL (8.4-10.5) 11/27/17 06:15 Phosphorus 3.3 mg/dL (2.5-4.5) 11/27/17 06:15 Magnesium 2.2 mg/dL (1.7-2.2) 11/27/17 06:15 Total Bilirubin 0.3 mg/dL (0.2-1.3) 11/27/17 06:15 AST 19 U/L (14-36) 11/27/17 06:15 ALT 19 U/L (7-56) 11/27/17 06:15 Alkaline Phosphatase 60 U/L (38-126) 11/27/17 06:15 Troponin I < 0.01 ng/mL 11/25/17 14:18 C-React Prot High Sens > 15.00 mg/L (1.00-3.00) H 11/24/17 22:15 NT-Pro-B Natriuret Pep 287 pg/mL (0-450) 11/24/17 22:15 Total Protein 7.0 g/dL (5.8-8.3) 11/27/17 06:15 Albumin 3.6 g/dL (3.0-4.8) 11/27/17 06:15 Globulin 3.4 gm/dL 11/27/17 06:15 Albumin/Globulin Ratio 1.1 (1.1-1.8) 11/27/17 06:15 Triglycerides 76 mg/dL (35-160) 11/25/17 06:00 Cholesterol 145 mg/dL (130-200) 11/25/17 06:00 LDL Cholesterol Direct 87 mg/dL (0-129) 11/25/17 06:00 HDL Cholesterol 32 mg/dL (29-60) 11/25/17 06:00 Vitamin B12 269 pg/mL (239-931) 11/25/17 06:00 25-OH Vitamin D Total 26.8 NG/ML (30.0-100.0) L 11/25/17 06:00 Procalcitonin 0.05 NG/ML (0.19-0.49) L 11/24/17 22:15 TSH 3rd Generation 2.15 mIU/mL (0.46-4.68) 11/25/17 06:00 Urine Color Yellow (YELLOW) 11/24/17 23:22 Urine Appearance Clear (CLEAR) 11/24/17 23:22 Urine pH 6.0 (4.7-8.0) 11/24/17 23:22 Ur Specific [place] 1.025 (1.005-1.035) 11/24/17 23:22 Urine Protein Negative mg/dL (<30 mg/dL) 11/24/17 23:22 Urine Glucose (UA) Negative mg/dL (NEGATIVE) 11/24/17 23:22 Urine Ketones Negative mg/dL (NEGATIVE) 11/24/17 23:22 Urine Blood Trace-lysed (NEGATIVE) H 11/24/17 23:22 Urine Nitrate Negative (NEGATIVE) 11/24/17 23:22 Urine Bilirubin Negative (NEGATIVE) 11/24/17 23:22 Urine Urobilinogen 0.2 E.U./dL (<1 E.U./dL) 11/24/17 23:22 Ur Leukocyte Esterase Negative Karen/uL (NEGATIVE) 11/24/17 23:22 Urine RBC 1 - 3 /hpf (0-2) 11/24/17 23:22 Urine WBC 0 - 2 /hpf (0-6) 11/24/17 23:22 Ur Epithelial Cells 3 - 4 /hpf (0-5) 11/24/17 23:22 Urine Bacteria Few (NEG) 11/24/17 23:22 Attending/Attestation - Attestation I have personally seen and examined this patient.: Yes I have fully participated in the care of the patient.: Yes I have reviewed all pertinent clinical information, including history, physical exam and plan: Yes Notes (Text): Patient seen and examined by me with resident at 11:20AM 11/27/17. Case including discharge plan discussed with resident. Agree with above with following additions/corrections Patient is a 46-year-old female with past medical history significant for hypertension, rheumatic heart disease status post mitral valve surgery 3, and pleural effusion that presented to the emergency room with shortness of breath for more than 4 months and neck pain. Please see H&P for full details. Patient was admitted with shortness of breath and neck pain. Patient also had some epigastric pain. Cardiology was consulted. Per cardiology neck pain and epigastric area pain noncardiac. Patient was continued on home aspirin and metoprolol. Chest x-ray per radiologist showed previously noted mild vascular congestive changes improved. Patient had elevated d-dimer. CTA chest per radiologist did not show any pulmonary emboli, mild groundglass opacities in the upper and lower lobes nonspecific. 2-D echo per [facility] showed left ventricle normal size, normal left ventricular wall thickness, left ventricular ejection fraction is within normal range, septal motion consistent with postoperative state (please see official read for full details). Patient was continued on nebulizer treatments and Flonase nasal spray. CT neck was also ordered for neck pain. Neck CT per radiologist showed enlargement of the left palatine tonsil likely due to tonsillitis however no definitive evidence of peritonsillar abscess seen; note that the enlarged palatine tonsil encroaches immediately reducing the oropharyngeal airway. Patient was initially started on IV Unasyn. ENT was consulted. Per ENT, patient to continue 10 day course of Augmentin as an outpatient and follow-up with ENT in a week for reevaluation and outpatient fiberoptic laryngoscopy in the office. Will need to rule out malignancy. Blood cultures and urine culture were negative. Patient was continued on metoprolol for hypertension. She was given prescription for vitamin D for vitamin D deficiency. Patient was feeling better and was able to tolerate food. Shortness of breath resolved. Neck pain improved. Patient was cleared for discharge by cardiology and ENT. She was discharged home. Gen: Awake and alert sitting up in bed in no acute distress HEENT: Normocephalic, atraumatic. Extraocular muscles intact, pupils equal reactive. Oropharynx is pink and moist. Positive left tonsillar enlargement noted. No exudates appreciated. No erythema noted. Positive spasm left sternocleidomastoid muscle Cardiovascular: Normal rhythm. Normal S1, S2. No murmurs, rubs, or gallops appreciated Pulmonary: Normal respiratory effort. No rhonchi, rales or wheezing appreciated. Gastrointestinal: Soft, nontender, nondistended, positive bowel sounds all 4 quadrants, no guarding. Musculoskeletal: Normal range of motion all extremities, no calf tenderness, no edema appreciated Central nervous system: AAO x 3. 5/5 muscle strength all extremities. CN 2-12 grossly intact Dermatologic: Skin warm and dry Please see chart for full details. Follow up instructions. Follow up with PMD within 3-5 days. Follow-up with ENT Dr. Gordon within 1 week upon discharge for further workup of tonsils. Take antibiotics as prescribed. Continue other home medications. All instructions explained to patient in detail. Patient both understands and agrees to all instructions. Time spent in discharging the patient including chart review, medication reconciliation, discussion with the patient, medical education coordinator, consultants, and nursing staff was approximately 40 minutes.
--- NOTE | 2017-11-27 17:07 | PN ---
Copied To: Mena De La Cruz MD Attending MD: Mena De La Cruz MD DATE: 11/27/2017 LOCATION: The patient is in room 565, bed 2. REASON FOR CONSULTATION: Neck pain and stomach pain. SUBJECTIVE: The patient is still complaining of some discomfort in the neck and in the epigastric area. There is no pain in the chest at present. The patient has history of mitral valve replacement due to severe mitral regurgitation. Surgery was done last year. The patient is sitting in a chair without any chest pain at present. She feels some discomfort in the neck and in the epigastric area. Denies any shortness of breath or palpitation. Denies any vomiting. Pain in the neck and throat area sometimes gets worse with swallowing, but not all the times. PHYSICAL EXAMINATION VITAL SIGNS: Blood pressure 126/75, respiration 20, pulse 69, temperature 98.1. HEENT: Head is normocephalic. Eyes: Pupils normal. Conjunctivae normal. Nose and throat normal. NECK: JVP is low. Carotid equal. THORAX: AP diameter normal. LUNGS: Clear. CARDIOVASCULAR: S1 and S2. ABDOMEN: Soft. No tenderness. No organomegaly. EXTREMITIES: No clubbing. No cyanosis. LABORATORY DATA: WBC 8, hemoglobin 12, hematocrit 38.3, and platelets 379. Sodium 141, potassium 5, BUN 13, creatinine 0.7. Calcium, phosphorous and magnesium normal. AST and ALT normal. Total protein and albumin normal. Troponin x2 normal. CT scan of the chest, no evidence of pulmonary embolism, trace pericardial effusion, mild pericardial thickening. CT scan of the soft tissue of neck, enlargement of left palatine tonsil, most likely due to tonsillitis. DIAGNOSES AND PLAN: Neck pain, epigastric pain, status post mitral valve replacement last year for severe mitral regurgitation. The patient had cardiac catheterization at that time and coronaries were showing no significant blockages. Echo was done on 11/25/2017 showed ejection fraction normal about 60%, left ventricular size normal, mild tricuspid regurgitation, mild pulmonary hypertension, right ventricular systolic pressure 36 mmHg, prosthetic mitral valve not well seen due to imaging artifacts. The patient's pain in the neck area and throat area along with epigastric area is noncardiac. We will continue with aspirin 81 mg daily, hand nebulizer therapy, cyclobenzaprine 5 mg b.i.d., heparin 5000 units subcu every 12 hours, metoprolol 50 b.i.d., Motrin p.r.n., Protonix 40 daily. The patient is on antibiotic, ampicillin/sulbactam 3 g IV every 6 hours. We will follow with you. Mena De La Cruz MD
[2017-11-28] MEDS ORDERED: Pantoprazole 40 mg EC Tab PO SCH (07:30)
== END 2017-11-27 17:04 | disposition home or self-care (01) ==
LOC: ED 21:20 → ERH 11-25 00:32 → 2RNO 11-25 01:55 → 5RNO 11-26 12:19
PROVIDERS: ADMIT Internal Medicine; ATTEND Hospitalist
DX: E55.9 Vitamin D deficiency, unspecified (principal); I08.1 Rheumatic disorders of both mitral and tricuspid valves; I11.0 Hypertensive heart disease with heart failure; I44.0 Atrioventricular block, first degree; I50.9 Heart failure, unspecified; J35.1 Hypertrophy of tonsils; R79.1 Abnormal coagulation profile; Z79.82 Long term (current) use of aspirin; Z82.49 Family history of ischemic heart disease and other diseases of the circulatory system; Z95.2 Presence of prosthetic heart valve; K59.00 Constipation, unspecified; D64.9 Anemia, unspecified
CPT/HCPCS: 36415; 70491; 71045; 71275; 80053; 80061; 81001; 82306; 82607; 82803; 83036; 83735; 83880; 84100; 84145; 84443; 84484; 85025; 85378; 85610; 85651; 85730; 86140; 87040; 87086; 93005; 93306; 94640; 94760; 97116; 97162; 99285; C9113; G0378; G8978; G8979; G8980; J0295; J1644; Q9967